=== PATIENT | male | born 1950 | race African-American/Black ===

== ENCOUNTER 2016-08-15 05:45 | Observation (INO) ==
--- NOTE | 2016-08-15 06:52 | Emergency Department Note ---
ICr Brittany, am scribing for, and in the presence of, Trinity Lyons DO 06:46. IEloy Debra, DO, personally performed the services described in this documentation, ascribed by Brooke Hankins in my presence, and it is both accurate and complete 652 . Arrival - Arrival Chief Complaint: Shortness of Breath Stated Complaint: sob ED Nursing Triage Note: C/C short of breath, upper abd pain started about midnight. Pt states he gets more short of breath on exertion and laying flat Mode of Arrival: Wheelchair Limitations: No Limitations Source: Patient, RN Notes Reviewed Time Seen by Provider: 08/15/16 06:33 - History of Present Illness HPI Narrative: Patient is a 65 y/o black male presenting to the ED with c/o shortness of breath with an onset of midnight. He reports that he had bouts of shortness of breath in the past and was seen for it, but was never told true cause. He denies any history of CHF, CAD, or [place]. Patient states he has had a cardiac catheterization recently, but no blockages were found. He denies any past hospitalizations for shortness of breath. He denies any recent long travels. Patient denies any associated symptoms of chest pain, abdominal pain, calf pain , nausea, vomiting, or diaphoresis. He reports a history of Atrial Fibrillation and has had a Defibrillator placed. He has no other complaint/pain. Allergies/Adverse Reactions: Allergies Allergy/AdvReac Type Severity Reaction Status Date / Time No Known Allergies Allergy Verified 08/15/16 05:57 Home Medications: Home Medications Medication Instructions Recorded Confirmed Type Aspirin EC Tab 325 mg PO DAILY 07/01/16 08/15/16 History Carvedilol 6.25 mg PO BID 07/01/16 08/15/16 History HYDROcodone/ACETAMIN 10-325 [[place] 1 tablet PO Q4H PRN 07/01/16 08/15/16 History 10-325] Isosorbide Mononitrate [Isosorbide 30 mg PO DAILY 07/01/16 08/15/16 History Mononitrate ER] Lisinopril 5 mg PO DAILY 07/01/16 08/15/16 History Nabumetone 1,000 mg PO PC SUPPER 07/01/16 08/15/16 History Omeprazole 20 mg PO DAILY 07/01/16 08/15/16 History Potassium Chloride 10 meq PO TID 07/01/16 08/15/16 History Simvastatin 40 mg PO DAILY 07/01/16 08/15/16 History Ascorbic Acid Tab [Vitamin C Tab] 1,000 mg PO BID #120 tablet 07/03/16 08/15/16 Rx Furosemide Tab [Lasix Tab] 80 mg PO DAILY #30 tablet 07/03/16 08/15/16 Rx Spironolactone [Aldactone] 50 mg PO DAILY #30 tablet 07/03/16 08/15/16 Rx Review of System - Review of System 12 point system: reviewed and no additional remarkable complaints except as stated - Review of System Constitutional: Absent: diaphoresis Head/Ears/Nose/Throat: Absent: nasal drainage, sore throat Respiratory: Present: respiratory distress. Absent: cough Cardiovascular: Absent: chest pain, edema Gastrointestinal: Absent: abdominal pain, nausea, vomiting Musculoskeletal: Absent: arm pain, back pain, leg pain, neck pain Medical,Surgical,& Family Hx - Medical History Cardio: History of: Cardiac Dysrhythmia, CHF, CAD, Hypertension, Cardiovascular Problems (ischemic cardiomyopathy) Endocrine: No history of: Diabetes Mellitus (IDDM), Diabetes Mellitus (NIDDM) - Surgical History Cardiac Surgeries: Sugical HX of: Internal Defibrillator Abdominal Surgeries: Surgical HX of: Colonoscopy, EGD - Family History Family History: Reports;: Family Cancer, Family Diabetes, Family Heart Disease, Family Hypertension - Social History Smoking Status: Never smoker Frequency of Alcohol Use: None Type of Drug Use: None Exam Vital Signs: Vital Signs Temperature 97 F L 08/15/16 05:52 Pulse Rate 88 08/15/16 05:52 Respiratory Rate 16 08/15/16 06:27 Blood Pressure 146/92 08/15/16 05:52 O2 Sat by Pulse Oximetry 96 08/15/16 05:52 - General General appearance: alert, in no apparent distress - Head Head exam: Present: atraumatic, normocephalic, normal inspection - Eye Eye exam: Present: normal appearance, PERRL, EOMI - ENT ENT exam: Present: normal exam, normal oropharynx, mucous membranes moist - Neck Neck exam: Present: normal inspection, full ROM, trachea midline - Chest Chest inspection: Present: normal inspection, symmetric chest wall rise - Respiratory Respiratory exam: Present: normal lung sounds bilaterally - Cardiovascular Cardiovascular exam: Present: regular rate, normal rhythm, normal heart sounds - Abdominal Exam Abdominal exam: Present: soft, normal bowel sounds - Extremities Exam Extremities exam: Present: normal inspection - Back Exam Back exam: Present: normal inspection - Neurological Exam Neurological exam: Present: alert, oriented X3, CN II-XII intact. Absent: motor sensory deficit - Psychiatric Psychiatric exam: Present: normal affect, normal mood - Skin Skin exam: Present: warm, dry, intact, normal color Course Course Narrative: spoke with Zion who will admit pt to hospitalist Results - Labs CBC & BMP: 08/15/16 06:25 08/15/16 06:25 Lab Results: I have reviewed the patients labs Labs: Laboratory Tests 08/15/16 08/15/16 06:25 06:25 WBC 4.6 RBC 5.28 Hgb 14.1 Hct 42.7 MCV 80.9 L Plt Count 177 MPV 13.0 H INR 1.0 PT Patient/Control Mix 11.1 D-Dimer, Quantitative 0.8 Circ Anticoag PTT 28.8 Laboratory Tests 08/15/16 06:25 Sodium 145 Potassium 4.3 Chloride 112 H Carbon Dioxide 25 BUN 17 Creatinine 1.20 Glucose 115 H Calcium 8.2 L AST 44 H Troponin I 0.551 H Globulin 3.8 H Albumin/Globulin Ratio 0.9 L - EKG EKG results: interpreted by YULISSA, no acute changes, not changed from: (june 2016) - Diagnostic Findings Procedure: Chest x-ray: image reviewed by me (chf) Disposition Clinical Impression: CHF (congestive heart failure), Cardiac enzymes elevated Case discussed with: patient Disposition: Still a Patient Condition: Stable Time of Disposition: 08:38
[2016-08-15 07:16] LABS: Basophils % 0.4 % (0.0-0.8); Eosinophils # 0.2 10*3/uL (0.0-0.87); Eosinophils % 5.2 % (0.00-10.9); Hematocrit 42.7 VOL% (42.0-52.0); Hemoglobin 14.1 GM/DL (14.0-18.0); Immature Granulocytes % 0.4 %; Immature Granulocytes Absolute 0.02 #; Lymphocytes # 1.4 10*3/uL (1.4-4.0); Lymphocytes % 30.7 % (21.2-54.2); Mean Corpuscular Hemoglobin 27 PG (27-34); Mean Corpuscular Volume 80.9 FL (87-102); Monocytes # 0.4 10*3/uL (0.11-0.8); Monocytes % 7.6 % (1.7-12.7); Neutrophils # 2.6 10*3/uL (1.4-7.4); Neutrophils % 55.7 % (38.7-73.9); Platelet Count 177 T/CUMM (130-400); Red Blood Count 5.28 MC/CUMM (3.8-5.5); Red Cell Distribution Width 16.8 % (9.3-17.3); White Blood Count 4.6 T/CUMM (4-12)
[2016-08-15 07:24] LABS: D-Dimer 0.8 MG/L FEU; PT Patient Result 11.1 SECS; Partial Thromboplastin Time 28.8 SECS (0-40)
[2016-08-15 07:29] LABS: Alanine Aminotransferase 34 U/L (16-61); Albumin 3.5 G/DL (3.4-5.0); Alkaline Phosphatase 103 U/L (45-117); Aspartate Amino Transferase 44 U/L (0-37); Blood Urea Nitrogen 17 MG/DL (7-18); Calcium 8.2 MG/DL (8.5-10.1); Glucose 115 MG/DL (74-106); Osmolality,Calculated 290.7 MOS/KG (273-304); Potassium 4.3 MMOL/L (3.5-5.1); Sodium 145 MMOL/L (136-145); Total Protein 7.3 G/DL (6.4-8.3)
[2016-08-15 07:30] LABS: Troponin I Only 0.551 NG/ML (0.00-0.045)
[2016-08-15] MEDS ORDERED: MORPHINE 2 MG/1 ML SYRINGE IV STA (08:30)
[2016-08-15] MEDS ORDERED: ONDANSETRON 4 MG/2 ML VIAL IV STA (08:30)
[2016-08-15] MEDS ORDERED: NITROGLYCERIN 2% OINT 1 INCH/GM PACK TOP STA (08:30)
[2016-08-15] MEDS ORDERED: NITROGLYCERIN 2% OINT 1 INCH/GM PACK TOP ONE (08:37)
[2016-08-15] MEDS ORDERED: ONDANSETRON 4 MG/2 ML VIAL ONE (08:37)
[2016-08-15] MEDS ORDERED: FUROSEMIDE 40 MG/4 ML VIAL IV STA (08:38)
[2016-08-15] MEDS ORDERED: ASPIRIN 325 MG TABLET PO STA (08:38)
[2016-08-15] MEDS ORDERED: MORPHINE 2 MG/1 ML SYRINGE ONE (08:38)
[2016-08-15] MEDS ORDERED: ASPIRIN 325 MG TABLET ONE (08:57)
[2016-08-15] MEDS ORDERED: FUROSEMIDE 40 MG/4 ML VIAL ONE (08:57)
--- NOTE | 2016-08-15 10:34 | Hospitalist History & Physical ---
Assessment and Plan - Time spent with patient Time spent with patient: Greater than 30 minutes (1) CHF (congestive heart failure) Status: Acute Assessment and plan: BNP 448. Last echocardiogram 07/01/16 revealed EF of 15-20% with several valvular abnormalities and a PAP of 73mmHg. He is followed by Dr. Uriostegui. Patient received 80mg of Lasix while in the ED and has been transferred to telemetry for further evaluation and treatment. Current Visit: Yes (2) Dyspnea Status: Resolved Assessment and plan: Likely secondary to CHF. Current Visit: No (3) Essential hypertension Status: Chronic Assessment and plan: Home meds include Lisinopril 5mg, Coreg 6.25mg bid, Spironolactone 25mg. BP on admission 153/107. Has NTG paste. Monitor and continue home meds. Current Visit: No (4) Elevated troponin Status: Resolved Assessment and plan: 0.551. This appears chronic, though better than on his last admission. Will continue to monitor. Current Visit: No History of Present Illness Chief complaint: SOB History of present illness: Mr. Fontanez is a 65 year old male with a past medical history significant for hypertension, ischemic cardiomyopathy with stent placement, CHF with ICD, hyperlipidemia who presents to the [facility] ED with complaints of SOB since midnight. The patient reports that he has been experiencing difficulty breathing when lying supine and was unable to sleep, prompting him to come to the emergency room. He denies any headache, blurry vision, chest pain, palpitations, near syncope, cough, pain with inspiration, numbness or tingling. On admission, the patient is short of breath without any labored breathing. He does report mid abdominal pain which is tender to palpation. Lab work is significant for trop 0.551, BNP 448. Coagulation studies were within normal limits. The patient is followed by Dr. Isela Uriostegui. Hospital records show no significant change in his EKG since June. He has an extensive cardiac history of CHF with is last echocardiogram on 07/01/16 revealed an EF of 15-20% with significant valvular abnormality and PAP of 73mmHg. He appears to have chronically elevated troponin, however there does not appear to be any obvious etiology for this acute SOB. The patient is a full code and will be admitted to the hospital medicine service for further evaluation and treatment. The case has been discussed with both Dr. Uriostegui and Dr. Page, the admitting physician. Home Medications Medication Instructions Recorded Confirmed Type Aspirin EC Tab 325 mg PO DAILY 07/01/16 08/15/16 History Carvedilol 6.25 mg PO BID 07/01/16 08/15/16 History HYDROcodone/ACETAMIN 10-325 [[place] 1 tablet PO Q4H PRN 07/01/16 08/15/16 History 10-325] Isosorbide Mononitrate [Isosorbide 30 mg PO DAILY 07/01/16 08/15/16 History Mononitrate ER] Lisinopril 5 mg PO DAILY 07/01/16 08/15/16 History Nabumetone 1,000 mg PO PC SUPPER 07/01/16 08/15/16 History Omeprazole 20 mg PO DAILY 07/01/16 08/15/16 History Potassium Chloride 10 meq PO TID 07/01/16 08/15/16 History Simvastatin 40 mg PO DAILY 07/01/16 08/15/16 History Ascorbic Acid Tab [Vitamin C Tab] 1,000 mg PO BID #120 tablet 07/03/16 08/15/16 Rx Furosemide Tab [Lasix Tab] 80 mg PO DAILY #30 tablet 07/03/16 08/15/16 Rx Spironolactone [Aldactone] 50 mg PO DAILY #30 tablet 07/03/16 08/15/16 Rx Allergies Allergy/AdvReac Type Severity Reaction Status Date / Time No Known Allergies Allergy Verified 08/15/16 05:57 Medical,Surgical,& Family Hx - Medical History Cardio: History of: Cardiac Dysrhythmia, CHF, CAD, Hypertension, Cardiovascular Problems (ischemic cardiomyopathy) Endocrine: No history of: Diabetes Mellitus (IDDM), Diabetes Mellitus (NIDDM) - Surgical History Cardiac Surgeries: Sugical HX of: Internal Defibrillator Abdominal Surgeries: Surgical HX of: Colonoscopy, EGD - Family History Family History: Reports;: Family Cancer, Family Diabetes, Family Heart Disease, Family Hypertension - Social History Smoking Status: Never smoker Frequency of Alcohol Use: None Type of Drug Use: None Marital Status: Single Lives With:: Alone Functional capacity: independent ambulation - Constitutional Constitutional: Absent: chills, fatigue, fever(s), frequent falls, weakness - EENT Eyes: Absent: blurry vision, loss of vision Ears: Absent: decreased hearing, ear pain Nose, mouth and throat: Absent: headache(s), neck mass, neck pain, sore throat - Cardiovascular Cardiovascular: Present: dyspnea, dyspnea on exertion. Absent: chest pain at rest, chest pain with activity, edema, lightheadedness, orthopnea, palpitations - Respiratory Respiratory: Absent: cough, dyspnea, hemoptysis, wheezing, pain on inspiration - Gastrointestinal Gastrointestinal: Present: abdominal pain. Absent: change in bowel habits, diarrhea, nausea, vomiting - Genitourinary Genitourinary: Absent: dysuria, flank pain - Musculoskeletal Musculoskeletal: Present: arthralgias, back pain - Neurological Neurological: Absent: abnormal gait, abnormal speech, confusion, dizziness, numbness, syncope - Endocrine Endocrine: Absent: cold intolerance, fatigue, heat intolerance - Hematologic/Lymphatic Hematologic/Lymphatic: Absent: easy bleeding, easy bruising Exam - Constitutional Vitals: Period Temp Pulse Resp BP Sys/Squires Pulse Ox Last 24 Hr 85-88 20-20 150-153/105-107 96-97 General appearance: normal weight, no acute distress - Head Head exam: Present: normal inspection, normocephalic, atraumatic - Eye Eye exam: Present: EOMI. Absent: conjunctival injection, nystagmus Pupils: Present: MARY - ENT ENT exam: Present: normal exam, normal external ear exam - Neck Neck exam: Present: normal inspection. Absent: lymphadenopathy, tenderness, thyromegaly - Respiratory Respiratory exam: Present: clear to auscultation bilaterally. Absent: rhonchi, wheezes - Cardiovascular Cardiovascular exam: Present: regular rate and rhythm. Absent: bradycardia, carotid bruit, tachycardia - GI/Abdominal GI/Abdominal exam: Present: normal bowel sounds, tenderness (mid abdomen). Absent: distended, firm, mass - Extremities Exam Extremities exam: Present: normal inspection, normal capillary refill. Absent: edema - Back Exam Back exam: Present: normal inspection. Absent: CVA tenderness (L), CVA tenderness (R) - Neurological Exam Neurological exam: Present: alert, oriented X3, CN II-XII intact, reflexes normal. Absent: motor sensory deficit - Psychiatric Psychiatric exam: Present: normal affect, normal mood - Skin Skin exam: Present: normal color, warm, dry. Absent: cyanosis Results - Labs CBC & BMP: 08/15/16 06:25 08/15/16 06:25 Lab Results: I have reviewed the past 24 hour labs - Diagnostic Findings Procedure: Chest x-ray: image reviewed by me
[2016-08-15] MEDS ORDERED: MAGNESIUM SULF RIDER 2 GM in PREMIX 1 EACH IV PRN (11:01)
[2016-08-15] MEDS ORDERED: MAGNESIUM SULF RIDER 4 GM in PREMIX 1 EACH IV PRN (11:01)
[2016-08-15] MEDS: CARVEDILOL 6.25 MG TABLET PO SCH ×2 (11:27→17:33)
[2016-08-15] MEDS: LISINOPRIL 5 MG TABLET PO SCH (11:27)
[2016-08-15] MEDS: ASCORBIC ACID 500 MG TABLET PO SCH ×2 (11:28→20:10)
--- NOTE | 2016-08-15 11:59 | XRay Report ---
Exam: XR chest 1V portable Indication: Cardiomegaly Shortness of breath Comparison study: 07/01/2016 Findings: Cardiomegaly is again noted, similar to prior. Left chest pacemaker-defibrillator device and wire leads appear in similar position. Patchy perihilar and basilar interstitial opacities appear similar to prior likely representing atelectasis/scarring. A degree of superimposed interstitial edema is not entirely excluded. No definite focal consolidation is visualized. There is no pneumothorax or pleural effusion. Osseous structures are stable. Impression: Cardiomegaly with probable central and basilar interstitial scarring and/or atelectasis. Mild underlying interstitial edema changes are not entirely excluded. PROCEDURE INTERPRETED AT [facility] DEPARTMENT OF RADIOLOGY Final Report Signed by: Kenn Branch
--- NOTE | 2016-08-15 14:56 | Cardiology Consult Note ---
Assessment and Plan (1) Dyspnea Status: Acute Assessment and plan: This is acute on chronic. It may be related to congestive heart failure, but his BNP and chest x-ray are only minimally elevated. He does not have an elevated d-dimer, has no other signs or symptoms of infection. If the symptoms do not improve with gentle diuresis we may need to consider pulmonary function testing. Current Visit: No (2) Cardiomyopathy Status: Chronic Current Visit: No (3) Essential hypertension Status: Chronic Current Visit: No (4) Congestive heart failure Status: Acute Assessment and plan: This is acute on chronic secondary to systolic dysfunction. As mentioned above his clinical presentation shows only very mild heart failure. Current Visit: No Qualifiers: Congestive heart failure type: systolic Congestive heart failure chronicity : acute on chronic Qualified Code(s): I50.23 - Acute on chronic systolic ( congestive) heart failure (5) Elevated troponin Status: Chronic Current Visit: No (6) Ischemic cardiomyopathy Status: Chronic Current Visit: No (7) History of placement of internal cardiac defibrillator Status: Chronic Current Visit: No (8) Hyperlipidemia Status: Chronic Current Visit: No History of Present Illness - Data of Consult Patient: known to practice within the last 3 years Consult date: 08/15/16 Requesting Physician: Lili Page - Consult Narrative Reason for consult: chf History of present illness: Credit Control Officer: Dr. Uriostegui who [facility]. He has coronary artery disease, ischemic cardiomyopathy Mr. Fontanez is a 65 year old male with ejection fraction 15-20%, hypertension, hyperlipidemia, defibrillator placement. He came to the emergency room with shortness of breath. He was doing well until the longwall shearer operator hours when he awoke feeling short of breath. He has not had any recent fevers, chills, cough. He denies recent dietary changes or indiscretions, denies medication noncompliance. It is unclear why his clinical status change. He did not have any antecedent exertional chest discomfort, lower extremity edema or orthopnea. He has received some Lasix and already his symptoms are improving. He has had no other clinical change in his usual status and has no other complaints today. CC: Lili Page MD - Home Medications and Allergies Home Medications: Home Medications Medication Instructions Recorded Confirmed Type Aspirin EC Tab 325 mg PO DAILY 07/01/16 08/15/16 History Carvedilol 6.25 mg PO BID 07/01/16 08/15/16 History HYDROcodone/ACETAMIN 10-325 [[place] 1 tablet PO Q4H PRN 07/01/16 08/15/16 History 10-325] Lisinopril 5 mg PO DAILY 07/01/16 08/15/16 History Nabumetone 1,000 mg PO PC SUPPER 07/01/16 08/15/16 History Omeprazole 20 mg PO DAILY 07/01/16 08/15/16 History Potassium Chloride 10 meq PO TID 07/01/16 08/15/16 History Simvastatin 40 mg PO DAILY 07/01/16 08/15/16 History Ascorbic Acid Tab [Vitamin C Tab] 1,000 mg PO BID #120 tablet 07/03/16 08/15/16 Rx Spironolactone [Aldactone] 25 mg PO DAILY 08/15/16 08/15/16 History Allergies/Adverse Reactions: Allergies Allergy/AdvReac Type Severity Reaction Status Date / Time No Known Allergies Allergy Verified 08/15/16 05:57 12 point system: reviewed and no additional remarkable complaints except as stated Medical,Surgical,& Family Hx - Medical History Cardio: History of: Cardiac Dysrhythmia, CHF, CAD, Hypertension, [place], Cardiovascular Problems (ischemic cardiomyopathy) Endocrine: No history of: Diabetes Mellitus (IDDM), Diabetes Mellitus (NIDDM) - Surgical History Cardiac Surgeries: Sugical HX of: Internal Defibrillator Patient Denies: Cardiac Catheterization Abdominal Surgeries: Surgical HX of: Colonoscopy, EGD - Family History Family History: Reports;: Family Cancer, Family Diabetes, Family Heart Disease, Family Hypertension - Social History Smoking Status: Never smoker Frequency of Alcohol Use: None Type of Drug Use: None Functional capacity: independent ambulation Physical Examination Vital Signs Temp Pulse Resp BP Pulse Ox 97 F L 84 20 146/92 96 08/15/16 05:52 08/15/16 05:52 08/15/16 05:52 08/15/16 05:52 08/15/16 05:52 Other: General appearance: normal weight, no acute distress - Head Head exam: Present: normal inspection, normocephalic, atraumatic. Absent: hematoma, laceration - Eye Eye exam: Present: EOMI. Absent: conjunctival injection, nystagmus, periorbital swelling, scleral icterus, laceration to eyelids Pupils: Present: PERRL. Absent: constricted, dilated, fixed, irregular, unequal - ENT ENT exam: Present: normal exam, normal external ear exam - Neck Neck exam: Present: normal inspection. Absent: lymphadenopathy, meningismus, tenderness, thyromegaly - Respiratory Respiratory exam: Present: clear to auscultation bilaterally. Absent: accessory muscle use, chest wall tenderness - Cardiovascular Cardiovascular exam: Present: regular rate and rhythm. Absent: carotid bruit, gallop, JVD, rubs - GI/Abdominal GI/Abdominal exam: Present: normal bowel sounds, soft. Absent: distended, firm , guarding, hernia, mass, tenderness, rebound. - Extremities Exam Extremities exam: Present: normal inspection, normal capillary refill. Absent: calf tenderness, edema - Back Exam Back exam: Present: normal inspection. Absent: muscle spasm, vertebral tenderness - Neurological Exam Neurological exam: Present: alert, oriented X3, grossly intact without resting or intention tremor - Psychiatric Psychiatric exam: Present: normal affect, normal mood - Skin Skin exam: Present: normal color, warm, dry, intact. Absent: cyanosis, diaphoretic, rash, urticaria Result/EKG - Labs CBC & BMP: 08/15/16 06:25 08/15/16 06:25 Lab Results: I have reviewed the past 24 hour labs Labs: Laboratory Results - last 24 hr 08/15/16 08/15/16 08/15/16 11:11 11:11 14:14 Magnesium 2.0 Troponin I 0.605 H 0.589 H - Diagnostic Findings Procedure: Chest x-ray: report reviewed by me
[2016-08-15] MEDS: FUROSEMIDE 40 MG/4 ML VIAL IV SCH (15:28)
[2016-08-15] MEDS: POTASSIUM CHLORIDE 10 MEQ TABLET PO SCH ×2 (15:28→20:10)
--- NOTE | 2016-08-15 15:28 | EKG Report ---
Stationary ECG Study [facility] ER Test Date: 08/15/2016 6:02:44 AM Pat Name: GERMANIA EMERY Department: Room: 284 Gender: M Councilman: Rodríguez : 1950 Requested by: Trinity Lyons Order Number: [id number] Reading MD: RHETT HINTON Intervals [place] Rate: 83 P: 62 NM: 194 QRS: -85 QRSD: 182 T: 88 QT: 449 QTc: 488 Interpretive Statements SINUS RHYTHM POSSIBLE LEFT ATRIAL ABNORMALITY RIGHT BUNDLE BRANCH BLOCK LEFT VENTRICULAR HYPERTROPHY LAFB INFERIOR INFARCT, ANTEROLATERAL INFARCT, PREVIOUSLY CITED Electronically Signed On 08-16-16 17:49:42 CDT by RHETT HINTON [email or web address]
[2016-08-15] MEDS ORDERED: NABUMETONE 500 MG TABLET PO SCH (18:00)
[2016-08-15] MEDS ORDERED: SIMVASTATIN 40 MG TABLET PO SCH (21:00)
[2016-08-16] MEDS ORDERED: SPIRONOLACTONE 50 MG TABLET PO SCH (09:00)
[2016-08-16] MEDS ORDERED: ASPIRIN EC 325 MG TABLET PO SCH (09:00)
[2016-08-16] MEDS ORDERED: PANTOPRAZOLE 40 MG TABLET PO SCH (09:00)
[2016-08-16] MEDS: FUROSEMIDE 40 MG/4 ML VIAL IV SCH (09:34)
[2016-08-16] MEDS: LISINOPRIL 5 MG TABLET PO SCH (09:35)
[2016-08-16] MEDS: ASCORBIC ACID 500 MG TABLET PO SCH (09:35)
[2016-08-16] MEDS: CARVEDILOL 6.25 MG TABLET PO SCH (09:35)
[2016-08-16] MEDS: POTASSIUM CHLORIDE 10 MEQ TABLET PO SCH (09:36)
--- NOTE | 2016-08-16 10:25 | Hospitalist Progress Note ---
Hospitalist: Subjective Interval history: Attestation to previously dictated history and physical performed on 08/15/2016. Due to problems with the electronic medical record I am unable to sign and test the history and physical performed by KIRBY Fuentes. The patient was seen and examined by me on the day of admission in room 284. He reported significant improvement of his symptoms after Lasix administration. His urine is very clear in color. He has no significant peripheral edema. His echocardiogram was reviewed and the case has been discussed with his welt wheeler who has graciously accepted him in transfer to her service. We will sign off the case but please feel free to call us if needed for any reason. The patient is admitted with acute on chronic systolic congestive heart failure with a depressed ejection fraction of approximately 15%. It does not appear that he was compliant with his Lasix therapy after his last discharge. His home medication list was reviewed and reconciled on admission. The patient is a full code. Please see the dictation from Dr. Uriostegui for further information and instructions regarding this patient's hospital course and care. Exam - Constitutional Vitals: Period Temp Pulse Resp BP Sys/Squires Pulse Ox Last 24 Hr 97.1 F-98.9 F 64-76 18-20 118-143/75-94 93-100 Results - Labs CBC & BMP: 08/15/16 06:25 08/15/16 06:25
[2016-08-16 12:31] VITALS: BP 118/78
--- NOTE | 2016-08-16 13:20 | Discharge Summary ---
Hospital Course - Hospital Course Hospital Course: Mr. Fontanez is a 65 year old male with ejection fraction 15-20%, hypertension, hyperlipidemia, defibrillator placement. He was admitted with shortness of breath and seemed to have mild congestive heart failure. There is some confusion as to whether or not he was really taking his Lasix. He denies any noncompliance, does not believe he has been out of his medications and initially tells me that he is taking his Lasix every day. However, this pill was not with the medications that he says he is taking every day. He was diuresed in the hospital and is feeling back to his baseline. He is being discharged home in stable condition. He would like to establish care with Dr. Jones as an outpatient. Diagnosis - Discharge Diagnosis (1) Dyspnea Status: Acute (2) Cardiomyopathy Status: Chronic (3) Essential hypertension Status: Chronic (4) Congestive heart failure Status: Acute (5) Elevated troponin Status: Chronic (6) Ischemic cardiomyopathy Status: Chronic (7) History of placement of internal cardiac defibrillator Status: Chronic (8) Hyperlipidemia Status: Chronic Discharge Plan - Discharge Data Disposition: Disch To Home/Self Care Condition at Discharge: Stable Discharge Diet: heart healthy Activity: resume usual activities as tolerated Hygiene: no restrictions - Discharge Medications New Furosemide Tab [Lasix Tab] 80 mg PO DAILY #30 tablet Continue Lisinopril 5 mg PO DAILY Nabumetone 1,000 mg PO PC SUPPER Potassium Chloride 10 meq PO TID Carvedilol 6.25 mg PO BID HYDROcodone/ACETAMIN 10-325 [Rhine 10-325] 1 tablet PO Q4H PRN PRN Reason: Pain Omeprazole 20 mg PO DAILY Simvastatin 40 mg PO DAILY Aspirin EC Tab 325 mg PO DAILY Ascorbic Acid Tab [Vitamin C Tab] 1,000 mg PO BID #120 tablet Spironolactone [Aldactone] 25 mg PO DAILY - Follow Up or Referral Follow Up: Isela Uriostegui MD [Physician] - 1 Month Dagmar Jones M.D. [Physician] - 2 Weeks (ESTABLISH CARE, NEXT AVAILABLE APPT. Hx of CAD, ICM, DM, HTN) - Forms/Instructions Additional Discharge Instructions: Weigh daily. If you gain >3 lbs in one day or 5 lbs in 1 week, take additional Lasix. BMP, BNP, Mg in 2 weeks with [facility]. Exam - Constitutional Vitals: Period Temp Pulse Resp BP Sys/Squires Pulse Ox Last 24 Hr 97.1 F-98.9 F 64-73 18-20 118-139/75-87 93-100 Exam: General appearance: normal weight, no acute distress - Head Head exam: Present: normal inspection, normocephalic, atraumatic. Absent: hematoma, laceration - Eye Eye exam: Present: EOMI. Absent: conjunctival injection, nystagmus, periorbital swelling, scleral icterus, laceration to eyelids Pupils: Present: PERRL. Absent: constricted, dilated, fixed, irregular, unequal - ENT ENT exam: Present: normal exam, normal external ear exam - Neck Neck exam: Present: normal inspection. Absent: lymphadenopathy, meningismus, tenderness, thyromegaly - Respiratory Respiratory exam: Present: clear to auscultation bilaterally. Absent: accessory muscle use, chest wall tenderness - Cardiovascular Cardiovascular exam: Present: regular rate and rhythm. Absent: carotid bruit, gallop, JVD, rubs - GI/Abdominal GI/Abdominal exam: Present: normal bowel sounds, soft. Absent: distended, firm , guarding, hernia, mass, tenderness, rebound. - Extremities Exam Extremities exam: Present: normal inspection, normal capillary refill. Absent: calf tenderness, edema - Back Exam Back exam: Present: normal inspection. Absent: muscle spasm, vertebral tenderness - Neurological Exam Neurological exam: Present: alert, oriented X3, grossly intact without resting or intention tremor - Psychiatric Psychiatric exam: Present: normal affect, normal mood - Skin Skin exam: Present: normal color, warm, dry, intact. Absent: cyanosis, diaphoretic, rash, urticaria Discharge Results Labs on day of discharge: Labs from last 24 hours 08/15/16 08/15/16 17:00 14:14 Troponin I 0.596 H 0.589 H DS: Provider Date of admission: 08/15/16 08:34 Primary care physician: . No PCP Attending physician on admission: Lili Page MD Consults: 08/15/16 11:01 Consult to Physician [CONS] Routine Comment: Mildly elevated troponin and BNP; pt known to you Consulting Provider: Isela Uriostegui 08/15/16 11:07 Consult to Pharmacy [CONS] Routine Reason for Pharmacy Consult: Adjust Meds Renal Funct Discharging clinician: Isela Uriostegui, Expected date of discharge: 08/16/16
== END 2016-08-16 17:00 | disposition home or self-care (01) ==
LOC: N.ED 05:45 → N.EDINP 05:45 → SUATTDRO 08:34 → N.TELEN 09:49
PROVIDERS: ADMIT Family Medicine; ATTEND Internal Medicine Cardiovascular Disease

== ENCOUNTER 2017-04-26 08:34 | Inpatient (IN) ==
[2017-04-26] MEDS ORDERED: FUROSEMIDE 100 MG/10 ML VIAL IV STA (09:41)
[2017-04-26] MEDS ORDERED: ONDANSETRON 4 MG/2 ML VIAL IV STA (09:41)
[2017-04-26] MEDS ORDERED: methylPREDNISolone SOD SUC 125 MG/2 ML VIAL IV STA (09:41)
[2017-04-26] MEDS ORDERED: ALBUTEROL 2.5 MG/3 ML NEB RESP TX SCH (10:00)
[2017-04-26] MEDS ORDERED: ONDANSETRON 4 MG/2 ML VIAL ONE (10:03)
[2017-04-26] MEDS ORDERED: FUROSEMIDE 100 MG/10 ML VIAL ONE (10:04)
[2017-04-26] MEDS ORDERED: methylPREDNISolone SOD SUC 125 MG/2 ML VIAL ONE (10:04)
[2017-04-26 10:15] LABS: Basophils % 0.4 % (0.0-0.8); Eosinophils # 0.1 10*3/uL (0.0-0.87); Eosinophils % 2.3 % (0.00-10.9); Hematocrit 41.5 VOL% (42.0-52.0); Hemoglobin 13.7 GM/DL (14.0-18.0); Immature Granulocytes % 0.7 %; Immature Granulocytes Absolute 0.04 #; Lymphocytes # 1.2 10*3/uL (1.4-4.0); Lymphocytes % 21.5 % (21.2-54.2); Mean Corpuscular Hemoglobin 27 PG (27-34); Mean Corpuscular Volume 81.9 FL (87-102); Monocytes # 0.4 10*3/uL (0.11-0.8); Monocytes % 6.8 % (1.7-12.7); Neutrophils # 3.9 10*3/uL (1.4-7.4); Neutrophils % 68.3 % (38.7-73.9); Platelet Count 161 T/CUMM (130-400); Red Blood Count 5.07 MC/CUMM (3.8-5.5); Red Cell Distribution Width 15.4 % (9.3-17.3); White Blood Count 5.7 T/CUMM (4-12)
[2017-04-26 10:16] LABS: Apearance,Urine CLEAR (Clear); Bilirubin,Urine Negative (Negative); Blood, Urine Negative (Negative); Glucose,Urine (UA) Negative (Negative); Ketones,Urine Negative (Negative); Mucus,Urine Occasional /LPF (Occasional); Nitrite,Urine Negative (Negative); Protein,Urine Negative; Squamous Epithelial Cell,Urine Occasional /HPF (0-10); Urine Color Yellow (Yellow); Urine Specific Gravity 1.011 (1.001-1.035); Urine Urobilinogen < 2.0 EU/DL (0.2-1.0); WBC,Urine 1 /HPF (0-6)
[2017-04-26 10:22] LABS: INR 1.1; PT Patient Result 11.4 SECS
[2017-04-26 10:38] LABS: Alanine Aminotransferase 13 U/L (16-61); Albumin 3.2 G/DL (3.4-5.0); Alkaline Phosphatase 80 U/L (45-117); Aspartate Amino Transferase 25 U/L (0-37); Blood Urea Nitrogen 18 MG/DL (7-18); Calcium 8.8 MG/DL (8.5-10.1); Glucose 163 MG/DL (74-106); Osmolality,Calculated 286.3 MOS/KG (273-304); Potassium 3.4 MMOL/L (3.5-5.1); Sodium 141 MMOL/L (136-145); Total Protein 7.4 G/DL (6.4-8.3)
[2017-04-26] MEDS ORDERED: DOCUSATE SODIUM 100 MG CAPSULE PO PRN (12:38)
[2017-04-26] MEDS ORDERED: MAGNESIUM SULF RIDER 2 GM in PREMIX 1 EACH IV PRN (12:38)
[2017-04-26] MEDS ORDERED: ACETAMINOPHEN 325 MG TABLET PO PRN (12:38)
[2017-04-26] MEDS ORDERED: LACTULOSE 20 GM/30 ML UDCUP PO PRN (12:38)
[2017-04-26] MEDS ORDERED: ZALEPLON 5 MG CAPSULE PO PRN (12:38)
[2017-04-26] MEDS ORDERED: MAGNESIUM SULF RIDER 4 GM in PREMIX 1 EACH IV PRN (12:38)
[2017-04-26] MEDS ORDERED: MORPHINE 10 MG/1 ML VIAL IV PRN (12:38)
[2017-04-26] MEDS ORDERED: POTASSIUM CHLORIDE 20 MEQ TABLET PO PRN (12:40)
[2017-04-26] MEDS ORDERED: LISINOPRIL 5 MG TABLET PO SCH (13:00)
[2017-04-26] MEDS ORDERED: LISINOPRIL 10 MG TABLET ONE (13:39)
[2017-04-26] MEDS ORDERED: POTASSIUM CHLORIDE 20 MEQ TABLET PO ONE (13:39)
[2017-04-26] MEDS ORDERED: ASPIRIN EC 325 MG TABLET PO ONE (13:39)
[2017-04-26] MEDS ORDERED: PANTOPRAZOLE 40 MG TABLET PO ONE (13:40)
[2017-04-26] MEDS ORDERED: CARVEDILOL 3.125 MG TABLET ONE (13:40)
[2017-04-26] MEDS: CARVEDILOL 6.25 MG TABLET PO SCH ×2 (13:44→21:31)
[2017-04-26] MEDS: ASPIRIN EC 325 MG TABLET PO SCH (13:44)
[2017-04-26] MEDS: POTASSIUM CHLORIDE 20 MEQ TABLET PO SCH ×2 (13:44→21:32)
[2017-04-26] MEDS: PANTOPRAZOLE 40 MG TABLET PO SCH (13:45)
[2017-04-26] MEDS ORDERED: ONDANSETRON 4 MG/2 ML VIAL IV PRN (14:15)
[2017-04-26] MEDS ORDERED: guaiFENesin/DM ER 600-30 MG TABLET PO PRN (14:15)
[2017-04-26] MEDS: ENOXAPARIN 100 MG/ML SYRINGE SUBCUT SCH (14:24)
[2017-04-26] MEDS ORDERED: ENOXAPARIN 100 MG/ML SYRINGE SUBCUT ONE (14:25)
[2017-04-26] MEDS: SPIRONOLACTONE 25 MG TABLET PO SCH (14:30)
[2017-04-26] MEDS: ASCORBIC ACID 500 MG TABLET PO SCH ×2 (14:30→21:31)
[2017-04-26] MEDS: ISOSORBIDE MONONITRATE 30 MG TABLET PO SCH (14:30)
[2017-04-26] MEDS ORDERED: LEVOFLOXACIN INJ 100 ML IV ONE (14:58)
[2017-04-26] MEDS: LEVOFLOXACIN INJ 500 MG in PREMIX 1 EACH IV SCH (15:06)
[2017-04-26] MEDS ORDERED: FUROSEMIDE 40 MG/4 ML VIAL IV SCH (16:00)
[2017-04-26 17:00] LABS: Calcium 8.5 MG/DL (8.5-10.1); Magnesium 1.8 MG/DL (1.8-2.4); Osmolality,Calculated 284.7 MOS/KG (273-304); Potassium 3.3 MMOL/L (3.5-5.1)
[2017-04-26] MEDS ORDERED: FUROSEMIDE 40 MG/4 ML VIAL ONE (17:53)
[2017-04-26] MEDS: LEVALBUTEROL 0.63 MG/3 ML NEB RESP TX SCH (19:53)
[2017-04-27] MEDS: LEVALBUTEROL 0.63 MG/3 ML NEB RESP TX SCH ×4 (01:53→20:33)
[2017-04-27] MEDS: ENOXAPARIN 100 MG/ML SYRINGE SUBCUT SCH ×2 (02:20→14:06)
[2017-04-27 04:25] LABS: Hematocrit 40.1 VOL% (42.0-52.0); Immature Granulocytes % 0.5 %; Immature Granulocytes Absolute 0.03 #; Lymphocytes # 0.8 10*3/uL (1.4-4.0); Lymphocytes % 12.6 % (21.2-54.2); Mean Corpuscular HGB Conc 32.4 GM/DL (32-36); Mean Corpuscular Hemoglobin 26 PG (27-34); Mean Platelet Volume 12.8 FL (9.6-12.0); Monocytes # 0.2 10*3/uL (0.11-0.8); Monocytes % 2.9 % (1.7-12.7); Neutrophils # 5.5 10*3/uL (1.4-7.4); Platelet Count 180 T/CUMM (130-400); Red Blood Count 4.95 MC/CUMM (3.8-5.5); Red Cell Distribution Width 15.2 % (9.3-17.3); White Blood Count 6.5 T/CUMM (4-12)
[2017-04-27 04:53] LABS: Calcium 8.3 MG/DL (8.5-10.1); Osmolality,Calculated 286.3 MOS/KG (273-304); Potassium 4.1 MMOL/L (3.5-5.1)
[2017-04-27 05:22] LABS: Bilirubin,Total 0.9 MG/DL (0.2-1.0); Calcium 8.7 MG/DL (8.5-10.1); Osmolality,Calculated 283.4 MOS/KG (273-304); Potassium 4.2 MMOL/L (3.5-5.1); Risk Ratio 4.12; Total Protein 7.1 G/DL (6.4-8.3); VLDL CHOLESTEROL 9.8 MG/DL
[2017-04-27 06:44] LABS: Apearance,Urine CLEAR (Clear); Bilirubin,Urine Negative (Negative); Blood, Urine Negative (Negative); Glucose,Urine (UA) Negative (Negative); Ketones,Urine Negative (Negative); Mucus,Urine Occasional /LPF (Occasional); Nitrite,Urine Negative (Negative); Protein,Urine 30 MG/DL; RBC,Urine 1 /HPF (0-4); Urine Color Yellow (Yellow); Urine Specific Gravity 1.027 (1.001-1.035); Urine Urobilinogen < 2.0 EU/DL (0.2-1.0); WBC,Urine <1 /HPF (0-6)
[2017-04-27] MEDS: SPIRONOLACTONE 25 MG TABLET PO SCH (09:24)
[2017-04-27] MEDS: POTASSIUM CHLORIDE 20 MEQ TABLET PO SCH ×2 (09:24→21:15)
[2017-04-27] MEDS: ASPIRIN EC 325 MG TABLET PO SCH (09:24)
[2017-04-27] MEDS: LISINOPRIL 5 MG TABLET PO SCH (09:25)
[2017-04-27] MEDS: CARVEDILOL 6.25 MG TABLET PO SCH ×2 (09:25→21:15)
[2017-04-27] MEDS: ISOSORBIDE MONONITRATE 30 MG TABLET PO SCH (09:25)
[2017-04-27] MEDS: PANTOPRAZOLE 40 MG TABLET PO SCH (09:25)
[2017-04-27] MEDS: ASCORBIC ACID 500 MG TABLET PO SCH ×2 (10:00→21:14)
[2017-04-27] MEDS: FUROSEMIDE 40 MG/4 ML VIAL IV SCH ×2 (10:17→15:20)
[2017-04-27] MEDS: LEVOFLOXACIN INJ 500 MG in PREMIX 1 EACH IV SCH (14:05)
[2017-04-27] MEDS ORDERED: ATORVASTATIN 20 MG TABLET PO SCH (21:00)
[2017-04-28] MEDS: LEVALBUTEROL 0.63 MG/3 ML NEB RESP TX SCH ×3 (01:32→13:01)
[2017-04-28] MEDS: ENOXAPARIN 100 MG/ML SYRINGE SUBCUT SCH (02:54)
[2017-04-28 05:38] LABS: Basophils % 0.2 % (0.0-0.8); Eosinophils # 0.1 10*3/uL (0.0-0.87); Eosinophils % 0.6 % (0.00-10.9); Hematocrit 41.8 VOL% (42.0-52.0); Hemoglobin 13.9 GM/DL (14.0-18.0); Immature Granulocytes % 0.3 %; Immature Granulocytes Absolute 0.03 #; Lymphocytes # 2.7 10*3/uL (1.4-4.0); Lymphocytes % 31.3 % (21.2-54.2); Mean Corpuscular HGB Conc 33.3 GM/DL (32-36); Mean Corpuscular Hemoglobin 27 PG (27-34); Mean Corpuscular Volume 80.1 FL (87-102); Mean Platelet Volume 12.2 FL (9.6-12.0); Monocytes # 0.5 10*3/uL (0.11-0.8); Monocytes % 5.7 % (1.7-12.7); Neutrophils # 5.4 10*3/uL (1.4-7.4); Neutrophils % 61.9 % (38.7-73.9); Platelet Count 195 T/CUMM (130-400); Red Blood Count 5.22 MC/CUMM (3.8-5.5); Red Cell Distribution Width 15.5 % (9.3-17.3); White Blood Count 8.7 T/CUMM (4-12)
[2017-04-28 06:25] LABS: Albumin 3.1 G/DL (3.4-5.0); Bilirubin,Total 2.2 MG/DL (0.2-1.0); Osmolality,Calculated 286.3 MOS/KG (273-304); Potassium 3.5 MMOL/L (3.5-5.1); Total Protein 7.2 G/DL (6.4-8.3)
[2017-04-28] MEDS: ASCORBIC ACID 500 MG TABLET PO SCH (09:34)
[2017-04-28] MEDS: PANTOPRAZOLE 40 MG TABLET PO SCH (09:34)
[2017-04-28] MEDS: ISOSORBIDE MONONITRATE 30 MG TABLET PO SCH (09:34)
[2017-04-28] MEDS: ASPIRIN EC 325 MG TABLET PO SCH (09:34)
[2017-04-28] MEDS: FUROSEMIDE 40 MG/4 ML VIAL IV SCH (09:35)
[2017-04-28] MEDS: LISINOPRIL 5 MG TABLET PO SCH (09:35)
[2017-04-28] MEDS: SPIRONOLACTONE 25 MG TABLET PO SCH (09:35)
[2017-04-28] MEDS: POTASSIUM CHLORIDE 20 MEQ TABLET PO SCH (09:35)
[2017-04-28] MEDS: CARVEDILOL 6.25 MG TABLET PO SCH (09:35)
[2017-04-28 11:34] VITALS: BP 93/61
== END 2017-04-28 13:48 | disposition home or self-care (01) | DRG 291 ==
LOC: N.ED 08:34 → N.EDINP 08:34 → N.TELEN 18:47
PROVIDERS: ADMIT Internal Medicine Cardiovascular Disease; ATTEND Internal Medicine Cardiovascular Disease

== ENCOUNTER 2017-12-25 10:58 | Inpatient (IN) ==
[2017-12-25] MEDS ORDERED: ONDANSETRON 4 MG/2 ML VIAL IV STA (11:25)
[2017-12-25] MEDS ORDERED: methylPREDNISolone SOD SUC 125 MG/2 ML VIAL IV STA (11:25)
[2017-12-25] MEDS ORDERED: AZITHROMYCIN INJ 500 MG in SODIUM CHLORIDE 0.9% 250 ML IV STA (11:25)
[2017-12-25] MEDS ORDERED: ALBUTEROL 2.5 MG/3 ML NEB RESP TX SCH (11:30)
[2017-12-25 11:58] LABS: Basophils % 0.2 % (0.0-0.8); Eosinophils % 0.2 % (0.00-10.9); Hematocrit 48.9 VOL% (42.0-52.0); Immature Granulocytes % 0.6 %; Immature Granulocytes Absolute 0.04 #; Lymphocytes # 0.8 10*3/uL (1.4-4.0); Lymphocytes % 12.2 % (21.2-54.2); Mean Corpuscular HGB Conc 32.7 GM/DL (32-36); Mean Corpuscular Hemoglobin 27 PG (27-34); Mean Corpuscular Volume 82.9 FL (87-102); Mean Platelet Volume 12.1 FL (9.6-12.0); Monocytes # 0.6 10*3/uL (0.11-0.8); Monocytes % 8.6 % (1.7-12.7); Neutrophils % 78.2 % (38.7-73.9); Platelet Count 175 T/CUMM (130-400); Red Cell Distribution Width 17.2 % (9.3-17.3); White Blood Count 6.4 T/CUMM (4-12)
[2017-12-25 12:03] LABS: INR 1.1; PT Patient Result 11.4 SECS; Partial Thromboplastin Time 31.7 SECS (0-40)
[2017-12-25] MEDS ORDERED: FUROSEMIDE 40 MG/4 ML VIAL IV STA (12:12)
[2017-12-25 12:14] LABS: Alanine Aminotransferase 24 U/L (16-61); Albumin 3.7 G/DL (3.4-5.0); Alkaline Phosphatase 122 U/L (45-117); Aspartate Amino Transferase 30 U/L (0-37); Blood Urea Nitrogen 20 MG/DL (7-18); Calcium 8.9 MG/DL (8.5-10.1); Glucose 133 MG/DL (74-106); Osmolality,Calculated 274.1 MOS/KG (273-304); Potassium 4.7 MMOL/L (3.5-5.1); Sodium 135 MMOL/L (136-145); Total Protein 9.1 G/DL (6.4-8.3)
[2017-12-25 12:20] LABS: Amorphous Crystals,Urine Occasional /HPF (Few); Apearance,Urine CLEAR (Clear); Bacteria,Urine Occasional /HPF (Few); Bilirubin,Urine Negative (Negative); Blood, Urine Small mg/dL (Negative); Glucose,Urine (UA) Negative (Negative); Hyaline Casts,Urine 1 /LPF (0-3); Ketones,Urine Negative (Negative); Mucus,Urine Occasional /LPF (Occasional); Nitrite,Urine Negative (Negative); Protein,Urine >=500 MG/DL; RBC,Urine 1 /HPF (0-4); Squamous Epithelial Cell,Urine Occasional /HPF (0-10); Urine Color Amber (Yellow); Urine Specific Gravity 1.024 (1.001-1.035); WBC,Urine <1 /HPF (0-6)
[2017-12-25] MEDS ORDERED: NITROGLYCERIN 2% OINT 1 INCH/GM PACK TOP STA (12:20)
[2017-12-25] MEDS ORDERED: ASPIRIN 325 MG TABLET PO STA (12:20)
[2017-12-25] MEDS ORDERED: ENOXAPARIN 100 MG/ML SYRINGE SUBCUT STA (12:25)
[2017-12-25 13:09] LABS: Band Neutrophils 4 % (0-10); Hypochromasia 1+; Lymphocytes 11 % (20-55); Platelet Estimate Adequate; Segmented Neutrophils 77 % (50-85); Total Cells Counted 100
[2017-12-25] MEDS: ISOSORBIDE MONONITRATE 30 MG TABLET PO SCH (16:14)
[2017-12-25] MEDS: hydrALAZINE 10 MG TABLET PO SCH ×2 (16:15→21:44)
[2017-12-25] MEDS ORDERED: ONDANSETRON 4 MG/2 ML VIAL IV PRN (16:27)
[2017-12-25] MEDS ORDERED: DOCUSATE SODIUM 100 MG CAPSULE PO PRN (16:27)
[2017-12-25] MEDS ORDERED: ACETAMINOPHEN 325 MG TABLET PO PRN (16:27)
[2017-12-25] MEDS ORDERED: BISACODYL 5 MG TABLET PO PRN (16:27)
[2017-12-25] MEDS ORDERED: MORPHINE 4 MG/1 ML VIAL IV PRN (16:27)
[2017-12-25] MEDS ORDERED: ALBUTEROL/IPRATROPIUM 3 ML NEB RESP TX PRN (16:27)
[2017-12-25] MEDS ORDERED: MAGNESIUM SULF RIDER 4 GM in PREMIX 1 EACH IV PRN (16:27)
[2017-12-25] MEDS ORDERED: MAGNESIUM SULF RIDER 2 GM in PREMIX 1 EACH IV PRN (16:27)
[2017-12-25 18:04] LABS: ABG Base Excess 0.6 MMOL/L (-2.5-2.5); ABG HCO3 24.9 MMOL/L (20-26); ABG Oxygen Saturation 97.1 % (95-100); ABG PCO2 31.3 MM HG (35-48); ABG PH 7.476 (7.35-7.45); ABG TCO2 19.3 MMOL/L (23-27)
[2017-12-25] MEDS: PIPERACILLIN/TAZOBACTAM 3,375 MG in SODIUM CHLORIDE 0.9% 100 ML IV SCH (19:36)
[2017-12-25] MEDS: FUROSEMIDE 40 MG/4 ML VIAL IV SCH (21:44)
[2017-12-25] MEDS: POTASSIUM CHLORIDE 20 MEQ TABLET PO SCH (21:44)
[2017-12-25] MEDS: CARVEDILOL 3.125 MG TABLET PO SCH (21:44)
[2017-12-25] MEDS: ATORVASTATIN 20 MG TABLET PO SCH (21:44)
[2017-12-25] MEDS ORDERED: VANCOMYCIN INJ 1,500 MG in SODIUM CHLORIDE 0.9% 500 ML IV SCH (22:00)
[2017-12-26] MEDS: PIPERACILLIN/TAZOBACTAM 3,375 MG in SODIUM CHLORIDE 0.9% 100 ML IV SCH ×3 (01:47→18:53)
[2017-12-26 04:55] LABS: Basophils % 0.2 % (0.0-0.8); Hematocrit 46.4 VOL% (42.0-52.0); Hemoglobin 15.5 GM/DL (14.0-18.0); Immature Granulocytes % 0.5 %; Immature Granulocytes Absolute 0.03 #; Lymphocytes # 1.1 10*3/uL (1.4-4.0); Lymphocytes % 16.3 % (21.2-54.2); Mean Corpuscular HGB Conc 33.4 GM/DL (32-36); Mean Corpuscular Hemoglobin 27 PG (27-34); Mean Corpuscular Volume 80.8 FL (87-102); Monocytes # 0.5 10*3/uL (0.11-0.8); Monocytes % 7.3 % (1.7-12.7); Neutrophils % 75.7 % (38.7-73.9); Platelet Count 177 T/CUMM (130-400); Red Blood Count 5.74 MC/CUMM (3.8-5.5); Red Cell Distribution Width 17.4 % (9.3-17.3); White Blood Count 6.6 T/CUMM (4-12)
[2017-12-26 05:29] LABS: Calcium 8.8 MG/DL (8.5-10.1); Osmolality,Calculated 272.5 MOS/KG (273-304); Potassium 5.2 MMOL/L (3.5-5.1); Risk Ratio 2.35; Thyroid Stimulating Hormone 1.89 uIU/ml (0.358-3.74); VLDL CHOLESTEROL 13.4 MG/DL
[2017-12-26 06:34] LABS: Band Neutrophils 6 % (0-10); Lymphocytes 18 % (20-55); Platelet Estimate Normal; Segmented Neutrophils 67 % (50-85); Total Cells Counted 100
[2017-12-26] MEDS: PANTOPRAZOLE 40 MG TABLET PO SCH (08:59)
[2017-12-26] MEDS: amLODIPine 5 MG TABLET PO SCH (08:59)
[2017-12-26] MEDS: FUROSEMIDE 40 MG/4 ML VIAL IV SCH ×2 (09:00→21:15)
[2017-12-26] MEDS: hydrALAZINE 10 MG TABLET PO SCH ×2 (09:00→16:33)
[2017-12-26] MEDS: ISOSORBIDE MONONITRATE 30 MG TABLET PO SCH (09:00)
[2017-12-26] MEDS: CARVEDILOL 3.125 MG TABLET PO SCH (09:00)
[2017-12-26] MEDS: ASPIRIN EC 325 MG TABLET PO SCH (09:00)
[2017-12-26] MEDS: POTASSIUM CHLORIDE 20 MEQ TABLET PO SCH ×2 (09:05→20:25)
[2017-12-26] MEDS: AZITHROMYCIN INJ 500 MG in SODIUM CHLORIDE 0.9% 250 ML IV SCH (15:09)
[2017-12-26] MEDS ORDERED: FUROSEMIDE 40 MG/4 ML VIAL IV ONE (16:04)
[2017-12-26] MEDS ORDERED: ALBUTEROL 2.5 MG/3 ML NEB RESP TX ONE (16:07)
[2017-12-26] MEDS: ENOXAPARIN 100 MG/ML SYRINGE SUBCUT SCH (16:46)
[2017-12-26 16:48] LABS: ABG Base Excess -4.6 MMOL/L (-2.5-2.5); ABG HCO3 20.6 MMOL/L (20-26); ABG Oxygen Saturation 94.4 % (95-100); ABG PH 7.518 (7.35-7.45); ABG TCO2 12.9 MMOL/L (23-27)
[2017-12-26 16:50] LABS: ABG PCO2 19.1 MM HG (35-48)
[2017-12-26 16:55] LABS: Troponin I 5.68 NG/ML (0.00-0.045)
[2017-12-26 17:47] LABS: ABG Base Excess -4.2 MMOL/L (-2.5-2.5); ABG HCO3 20.9 MMOL/L (20-26); ABG PCO2 27.7 MM HG (35-48); ABG PH 7.431 (7.35-7.45); ABG PO2 79.2 MM HG (80-95); ABG TCO2 15.5 MMOL/L (23-27)
[2017-12-26 19:53] LABS: Allen Test Positive
[2017-12-26 19:54] LABS: ABG Base Excess -2.4 MMOL/L (-2.5-2.5); ABG HCO3 22.3 MMOL/L (20-26); ABG Oxygen Saturation 94.2 % (95-100); ABG PCO2 27.1 MM HG (35-48); ABG PH 7.467 (7.35-7.45); ABG PO2 72.5 MM HG (80-95); ABG TCO2 16.5 MMOL/L (23-27)
[2017-12-26] MEDS: VANCOMYCIN INJ 1,500 MG in SODIUM CHLORIDE 0.9% 500 ML IV SCH (21:19)
[2017-12-26] MEDS: ATORVASTATIN 20 MG TABLET PO SCH (21:19)
[2017-12-26 22:13] LABS: ABG Base Excess -0.5 MMOL/L (-2.5-2.5); ABG Oxygen Saturation 96.3 % (95-100); ABG PCO2 31.3 MM HG (35-48); ABG PO2 86.1 MM HG (80-95); ABG TCO2 18.8 MMOL/L (23-27); Allen Test Positive
[2017-12-27] MEDS: PIPERACILLIN/TAZOBACTAM 3,375 MG in SODIUM CHLORIDE 0.9% 100 ML IV SCH ×3 (02:31→17:27)
[2017-12-27 04:07] LABS: Basophils % 0.2 % (0.0-0.8); Hematocrit 43.7 VOL% (42.0-52.0); Hemoglobin 14.9 GM/DL (14.0-18.0); Immature Granulocytes % 0.3 %; Immature Granulocytes Absolute 0.02 #; Lymphocytes # 1.5 10*3/uL (1.4-4.0); Lymphocytes % 24.7 % (21.2-54.2); Mean Corpuscular HGB Conc 34.1 GM/DL (32-36); Mean Corpuscular Hemoglobin 27 PG (27-34); Mean Corpuscular Volume 78.7 FL (87-102); Mean Platelet Volume 12.8 FL (9.6-12.0); Monocytes # 0.3 10*3/uL (0.11-0.8); Monocytes % 4.5 % (1.7-12.7); Neutrophils # 4.3 10*3/uL (1.4-7.4); Neutrophils % 70.3 % (38.7-73.9); Platelet Count 161 T/CUMM (130-400); Red Blood Count 5.55 MC/CUMM (3.8-5.5); Red Cell Distribution Width 15.9 % (9.3-17.3); White Blood Count 6.2 T/CUMM (4-12)
[2017-12-27 04:47] LABS: Calcium 8.4 MG/DL (8.5-10.1); Osmolality,Calculated 278.2 MOS/KG (273-304); Potassium 4.3 MMOL/L (3.5-5.1)
[2017-12-27 04:49] LABS: Hypochromasia 1+
[2017-12-27 04:50] LABS: Platelet Estimate Adequate
[2017-12-27] MEDS: ENOXAPARIN 100 MG/ML SYRINGE SUBCUT SCH ×2 (05:37→17:27)
[2017-12-27] MEDS: FUROSEMIDE 40 MG/4 ML VIAL IV SCH ×2 (09:09→21:25)
[2017-12-27] MEDS: amLODIPine 5 MG TABLET PO SCH (09:09)
[2017-12-27] MEDS: PANTOPRAZOLE 40 MG TABLET PO SCH (09:09)
[2017-12-27] MEDS: POTASSIUM CHLORIDE 20 MEQ TABLET PO SCH ×2 (09:09→21:26)
[2017-12-27] MEDS: ASPIRIN EC 325 MG TABLET PO SCH (09:09)
[2017-12-27] MEDS: AZITHROMYCIN INJ 500 MG in SODIUM CHLORIDE 0.9% 250 ML IV SCH (12:07)
[2017-12-27] MEDS ORDERED: LOPERAMIDE 2 MG CAPSULE PO PRN (13:04)
[2017-12-27] MEDS: CARVEDILOL 3.125 MG TABLET PO SCH (21:26)
[2017-12-27] MEDS: ATORVASTATIN 20 MG TABLET PO SCH (21:26)
[2017-12-27] MEDS: VANCOMYCIN INJ 1,500 MG in SODIUM CHLORIDE 0.9% 500 ML IV SCH (21:26)
[2017-12-28] MEDS: PIPERACILLIN/TAZOBACTAM 3,375 MG in SODIUM CHLORIDE 0.9% 100 ML IV SCH ×3 (02:51→18:05)
[2017-12-28] MEDS: ENOXAPARIN 100 MG/ML SYRINGE SUBCUT SCH ×2 (05:33→18:05)
[2017-12-28 05:54] LABS: Basophils # 0.1 10*3/uL (0.0-0.2); Basophils % 0.9 % (0.0-0.8); Eosinophils % 0.6 % (0.00-10.9); Hematocrit 45.8 VOL% (42.0-52.0); Hemoglobin 15.1 GM/DL (14.0-18.0); Immature Granulocytes % 0.9 %; Immature Granulocytes Absolute 0.06 #; Lymphocytes # 2.3 10*3/uL (1.4-4.0); Lymphocytes % 33.7 % (21.2-54.2); Mean Corpuscular Hemoglobin 27 PG (27-34); Mean Platelet Volume 13.3 FL (9.6-12.0); Monocytes # 0.7 10*3/uL (0.11-0.8); Neutrophils # 3.6 10*3/uL (1.4-7.4); Neutrophils % 52.9 % (38.7-73.9); Platelet Count 147 T/CUMM (130-400); Red Blood Count 5.52 MC/CUMM (3.8-5.5); Red Cell Distribution Width 16.6 % (9.3-17.3); White Blood Count 6.7 T/CUMM (4-12)
[2017-12-28 06:00] LABS: Calcium 8.6 MG/DL (8.5-10.1); Osmolality,Calculated 275.1 MOS/KG (273-304); Potassium 4.7 MMOL/L (3.5-5.1)
[2017-12-28 06:49] LABS: Hypochromasia 1+; Lymphocytes 36 % (20-55); Nucleated Red Blood Cells 1 (0-5); Platelet Estimate Normal; Segmented Neutrophils 49 % (50-85); Total Cells Counted 100
[2017-12-28] MEDS: VANCOMYCIN INJ 1,500 MG in SODIUM CHLORIDE 0.9% 500 ML IV SCH ×2 (08:43→22:34)
[2017-12-28] MEDS: CARVEDILOL 3.125 MG TABLET PO SCH ×2 (08:46→22:26)
[2017-12-28] MEDS: ASPIRIN EC 325 MG TABLET PO SCH (08:46)
[2017-12-28] MEDS: PANTOPRAZOLE 40 MG TABLET PO SCH (08:47)
[2017-12-28] MEDS: FUROSEMIDE 40 MG/4 ML VIAL IV SCH ×2 (08:48→22:28)
[2017-12-28] MEDS: POTASSIUM CHLORIDE 20 MEQ TABLET PO SCH ×2 (10:55→22:27)
[2017-12-28] MEDS: ALBUTEROL/IPRATROPIUM 3 ML NEB RESP TX SCH ×3 (11:00→19:45)
[2017-12-28] MEDS ORDERED: POTASSIUM CHLORIDE RIDER 10 MEQ in PREMIX 1 EACH IV PRN (15:12)
[2017-12-28] MEDS ORDERED: MAGNESIUM SULF RIDER 2 GM in PREMIX 1 EACH IV PRN (15:12)
[2017-12-28] MEDS ORDERED: POTASSIUM CHLORIDE RIDER 20 MEQ in PREMIX 1 EACH IV PRN (15:12)
[2017-12-28] MEDS: AZITHROMYCIN INJ 500 MG in SODIUM CHLORIDE 0.9% 250 ML IV SCH (15:18)
[2017-12-28] MEDS: ATORVASTATIN 20 MG TABLET PO SCH (22:26)
[2017-12-29] MEDS: ALBUTEROL/IPRATROPIUM 3 ML NEB RESP TX SCH ×7 (00:12→23:57)
[2017-12-29] MEDS: PIPERACILLIN/TAZOBACTAM 3,375 MG in SODIUM CHLORIDE 0.9% 100 ML IV SCH ×3 (03:10→20:04)
[2017-12-29 04:25] LABS: Basophils % 0.5 % (0.0-0.8); Eosinophils # 0.1 10*3/uL (0.0-0.87); Eosinophils % 1.1 % (0.00-10.9); Hemoglobin 14.9 GM/DL (14.0-18.0); Immature Granulocytes % 1.1 %; Immature Granulocytes Absolute 0.06 #; Lymphocytes % 36.8 % (21.2-54.2); Mean Corpuscular HGB Conc 33.1 GM/DL (32-36); Mean Corpuscular Hemoglobin 27 PG (27-34); Mean Corpuscular Volume 81.7 FL (87-102); Monocytes # 0.4 10*3/uL (0.11-0.8); Monocytes % 7.2 % (1.7-12.7); Neutrophils % 53.3 % (38.7-73.9); Platelet Count 127 T/CUMM (130-400); Red Blood Count 5.51 MC/CUMM (3.8-5.5); Red Cell Distribution Width 16.1 % (9.3-17.3); White Blood Count 5.6 T/CUMM (4-12)
[2017-12-29 04:46] LABS: Calcium 8.4 MG/DL (8.5-10.1); Osmolality,Calculated 274.1 MOS/KG (273-304); Potassium 4.6 MMOL/L (3.5-5.1)
[2017-12-29 05:07] LABS: Ovalocytes Few; Platelet Estimate Normal
[2017-12-29 05:08] LABS: Hypochromasia Slight
[2017-12-29] MEDS: ENOXAPARIN 100 MG/ML SYRINGE SUBCUT SCH (06:01)
[2017-12-29] MEDS ORDERED: HEPARIN/NACL 0.9% 2 UNITS/ML 1,000 ML IV ONE (06:50)
[2017-12-29] MEDS ORDERED: diphenhydrAMINE CAP 25 MG CAPSULE PO ONE (07:00)
[2017-12-29] MEDS ORDERED: LIDOCAINE 1% 20 ML VIAL ONE (07:45)
[2017-12-29] MEDS ORDERED: MIDAZOLAM 2 MG/2 ML VIAL ONE (07:46)
[2017-12-29] MEDS ORDERED: fentaNYL 100 MCG/2 ML VIAL ONE (07:46)
[2017-12-29] MEDS ORDERED: DIAZEPAM 5 MG TABLET PO ONE (08:00)
[2017-12-29] MEDS ORDERED: ACETAMINOPHEN/CODEINE 300-30 MG TABLET PO PRN (08:35)
[2017-12-29] MEDS: PANTOPRAZOLE 40 MG TABLET PO SCH (10:38)
[2017-12-29] MEDS: ASPIRIN EC 325 MG TABLET PO SCH (10:39)
[2017-12-29] MEDS: CARVEDILOL 3.125 MG TABLET PO SCH ×2 (10:39→21:28)
[2017-12-29] MEDS: POTASSIUM CHLORIDE 20 MEQ TABLET PO SCH ×2 (10:39→21:29)
[2017-12-29] MEDS: VANCOMYCIN INJ 1,500 MG in SODIUM CHLORIDE 0.9% 500 ML IV SCH ×2 (11:10→17:18)
[2017-12-29] MEDS: ATORVASTATIN 20 MG TABLET PO SCH (21:29)
[2017-12-30] MEDS: ENOXAPARIN 40 MG/0.4 ML SYRINGE SUBCUT SCH (02:02)
[2017-12-30] MEDS: PIPERACILLIN/TAZOBACTAM 3,375 MG in SODIUM CHLORIDE 0.9% 100 ML IV SCH ×3 (02:02→18:01)
[2017-12-30] MEDS: ALBUTEROL/IPRATROPIUM 3 ML NEB RESP TX SCH ×6 (03:49→23:31)
[2017-12-30 04:15] LABS: Basophils # 0.1 10*3/uL (0.0-0.2); Eosinophils # 0.1 10*3/uL (0.0-0.87); Eosinophils % 1.5 % (0.00-10.9); Hematocrit 42.2 VOL% (42.0-52.0); Hemoglobin 14.3 GM/DL (14.0-18.0); Immature Granulocytes % 1.2 %; Immature Granulocytes Absolute 0.07 #; Lymphocytes # 2.1 10*3/uL (1.4-4.0); Lymphocytes % 34.7 % (21.2-54.2); Mean Corpuscular HGB Conc 33.9 GM/DL (32-36); Mean Corpuscular Hemoglobin 27 PG (27-34); Mean Corpuscular Volume 79.5 FL (87-102); Mean Platelet Volume 13.1 FL (9.6-12.0); Monocytes # 0.5 10*3/uL (0.11-0.8); Monocytes % 8.1 % (1.7-12.7); NRBC # 0.03 10*3/uL; Neutrophils # 3.2 10*3/uL (1.4-7.4); Neutrophils % 53.5 % (38.7-73.9); Platelet Count 201 T/CUMM (130-400); Red Blood Count 5.31 MC/CUMM (3.8-5.5); Red Cell Distribution Width 15.9 % (9.3-17.3); White Blood Count 5.9 T/CUMM (4-12)
[2017-12-30 04:42] LABS: Calcium 8.6 MG/DL (8.5-10.1); Osmolality,Calculated 278.7 MOS/KG (273-304); Potassium 4.4 MMOL/L (3.5-5.1)
[2017-12-30 05:16] LABS: Anisocytosis 2+; Band Neutrophils 4 % (0-10); Eosinophils 1 % (0-10); Lymphocytes 33 % (20-55); Metamyelocytes 2 %; Microcytosis 2+; Myelocytes 1 %; Platelet Estimate Normal; Segmented Neutrophils 53 % (50-85); Total Cells Counted 100
[2017-12-30] MEDS: PANTOPRAZOLE 40 MG TABLET PO SCH (06:32)
[2017-12-30] MEDS: ASPIRIN EC 325 MG TABLET PO SCH (08:41)
[2017-12-30] MEDS: POTASSIUM CHLORIDE 20 MEQ TABLET PO SCH ×2 (08:42→20:51)
[2017-12-30] MEDS: CARVEDILOL 3.125 MG TABLET PO SCH ×2 (08:42→20:51)
[2017-12-30] MEDS: FUROSEMIDE 40 MG/4 ML VIAL IV SCH ×2 (10:06→20:51)
[2017-12-30] MEDS: VANCOMYCIN INJ 1,500 MG in SODIUM CHLORIDE 0.9% 500 ML IV SCH (10:08)
[2017-12-30] MEDS: ATORVASTATIN 20 MG TABLET PO SCH (20:51)
[2017-12-31] MEDS: PIPERACILLIN/TAZOBACTAM 3,375 MG in SODIUM CHLORIDE 0.9% 100 ML IV SCH ×2 (01:17→09:52)
[2017-12-31] MEDS: ENOXAPARIN 40 MG/0.4 ML SYRINGE SUBCUT SCH (02:04)
[2017-12-31] MEDS: ALBUTEROL/IPRATROPIUM 3 ML NEB RESP TX SCH ×3 (03:37→10:35)
[2017-12-31] MEDS: VANCOMYCIN INJ 1,500 MG in SODIUM CHLORIDE 0.9% 500 ML IV SCH (05:15)
[2017-12-31 05:34] LABS: Basophils # 0.1 10*3/uL (0.0-0.2); Basophils % 0.8 % (0.0-0.8); Eosinophils # 0.1 10*3/uL (0.0-0.87); Eosinophils % 1.8 % (0.00-10.9); Hematocrit 46.1 VOL% (42.0-52.0); Hemoglobin 15.1 GM/DL (14.0-18.0); Immature Granulocytes % 1.3 %; Immature Granulocytes Absolute 0.08 #; Lymphocytes # 1.8 10*3/uL (1.4-4.0); Lymphocytes % 28.9 % (21.2-54.2); Mean Corpuscular HGB Conc 32.8 GM/DL (32-36); Mean Corpuscular Hemoglobin 27 PG (27-34); Mean Corpuscular Volume 80.9 FL (87-102); Mean Platelet Volume 12.4 FL (9.6-12.0); Monocytes # 0.5 10*3/uL (0.11-0.8); Monocytes % 7.9 % (1.7-12.7); NRBC # 0.04 10*3/uL; Neutrophils # 3.6 10*3/uL (1.4-7.4); Neutrophils % 59.3 % (38.7-73.9); Platelet Count 169 T/CUMM (130-400); White Blood Count 6.1 T/CUMM (4-12)
[2017-12-31 05:47] LABS: Calcium 8.7 MG/DL (8.5-10.1); Osmolality,Calculated 279.5 MOS/KG (273-304); Potassium 5.1 MMOL/L (3.5-5.1)
[2017-12-31 05:51] LABS: Hypochromasia 1+; Lymphocytes 30 % (20-55); Platelet Estimate Adequate; Segmented Neutrophils 63 % (50-85)
[2017-12-31 05:52] LABS: Microcytosis Slight; Total Cells Counted 100
[2017-12-31] MEDS: PANTOPRAZOLE 40 MG TABLET PO SCH (08:11)
[2017-12-31] MEDS: CARVEDILOL 3.125 MG TABLET PO SCH (08:11)
[2017-12-31] MEDS: ASPIRIN EC 325 MG TABLET PO SCH (08:12)
[2017-12-31] MEDS: FUROSEMIDE 40 MG/4 ML VIAL IV SCH (08:12)
[2017-12-31] MEDS: POTASSIUM CHLORIDE 20 MEQ TABLET PO SCH (08:15)
[2017-12-31 11:40] VITALS: BP 121/79
== END 2017-12-31 13:53 | disposition home health service (06) | DRG 286 ==
LOC: N.ED 10:58 → N.EDINP 16:13 → SUATTDRO 16:13 → N.TELEN 16:42 → N.ICU 12-26 16:35 → N.TELEN 12-30 14:07
PROVIDERS: ADMIT Internal Medicine; ATTEND Hospitalist
PROC: CLCCHCL (ICD-10-PCS; 2017-12-29 08:15)

== ENCOUNTER 2018-01-04 13:14 | Inpatient (IN) ==
[2018-01-04 14:48] LABS: Basophils # 0.1 10*3/uL (0.0-0.2); Basophils % 0.8 % (0.0-0.8); Eosinophils # 0.1 10*3/uL (0.0-0.87); Eosinophils % 1.4 % (0.00-10.9); Hematocrit 43.7 VOL% (42.0-52.0); Hemoglobin 14.7 GM/DL (14.0-18.0); Immature Granulocytes % 1.6 %; Lymphocytes # 1.6 10*3/uL (1.4-4.0); Lymphocytes % 26.2 % (21.2-54.2); Mean Corpuscular HGB Conc 33.6 GM/DL (32-36); Mean Corpuscular Hemoglobin 28 PG (27-34); Mean Corpuscular Volume 82.1 FL (87-102); Mean Platelet Volume 11.4 FL (9.6-12.0); Monocytes # 0.6 10*3/uL (0.11-0.8); Monocytes % 8.9 % (1.7-12.7); NRBC # 0.02 10*3/uL; Neutrophils # 3.8 10*3/uL (1.4-7.4); Neutrophils % 61.1 % (38.7-73.9); Platelet Count 236 T/CUMM (130-400); Red Blood Count 5.32 MC/CUMM (3.8-5.5); Red Cell Distribution Width 17.4 % (9.3-17.3); White Blood Count 6.2 T/CUMM (4-12)
[2018-01-04 14:49] LABS: ABG Base Excess -1.4 MMOL/L (-2.5-2.5); ABG HCO3 23.3 MMOL/L (20-26); ABG PH 7.561 (7.35-7.45); ABG TCO2 15.7 MMOL/L (23-27); Allen Test Positive
[2018-01-04 14:53] LABS: ABG PCO2 20.6 MM HG (35-48)
[2018-01-04 14:56] LABS: INR 1.2; PT Patient Result 12.4 SECS; Partial Thromboplastin Time 29.1 SECS (0-40)
[2018-01-04 15:24] LABS: Eosinophils 2 % (0-10); Hypochromasia 1+; Lymphocytes 37 % (20-55); Nucleated Red Blood Cells 1 (0-5); Polychromasia Few; Segmented Neutrophils 57 % (50-85); Total Cells Counted 100
[2018-01-04 15:25] LABS: Anisocytosis Slight; Platelet Estimate Adequate
[2018-01-04 15:56] LABS: Albumin 3.3 G/DL (3.4-5.0); Bilirubin,Total 1.1 MG/DL (0.2-1.0); Calcium 9.2 MG/DL (8.5-10.1); Potassium 4.8 MMOL/L (3.5-5.1)
[2018-01-04] MEDS ORDERED: FUROSEMIDE 40 MG/4 ML VIAL IV STA (16:49)
[2018-01-04] MEDS ORDERED: ACETAMINOPHEN 325 MG TABLET PO PRN (17:30)
[2018-01-04] MEDS ORDERED: ALBUTEROL 2.5 MG/3 ML NEB RESP TX PRN (17:36)
[2018-01-04] MEDS: IPRATROPIUM 500 MCG/2.5 ML NEB RESP TX SCH (20:02)
[2018-01-04] MEDS: ATORVASTATIN 20 MG TABLET PO SCH (21:17)
[2018-01-04] MEDS: ENOXAPARIN 30 MG/0.3 ML SYRINGE SUBCUT SCH (21:17)
[2018-01-04] MEDS: levETIRAcetam 500 MG TABLET PO SCH (21:17)
[2018-01-04] MEDS: CARVEDILOL 3.125 MG TABLET PO SCH (21:17)
[2018-01-04] MEDS: BUDESONIDE/FORMOTEROL 160-4.5 INHALER 6 GM INH SCH (21:18)
[2018-01-04] MEDS: SODIUM CHLORIDE 0.9% 1,000 ML IV SCH (23:05)
[2018-01-05] MEDS: IPRATROPIUM 500 MCG/2.5 ML NEB RESP TX SCH ×2 (00:20→08:09)
[2018-01-05 06:48] LABS: Basophils % 0.7 % (0.0-0.8); Eosinophils # 0.1 10*3/uL (0.0-0.87); Eosinophils % 1.1 % (0.00-10.9); Hematocrit 40.1 VOL% (42.0-52.0); Hemoglobin 13.5 GM/DL (14.0-18.0); Immature Granulocytes % 1.2 %; Immature Granulocytes Absolute 0.07 #; Lymphocytes # 1.4 10*3/uL (1.4-4.0); Lymphocytes % 23.9 % (21.2-54.2); Mean Corpuscular HGB Conc 33.7 GM/DL (32-36); Mean Corpuscular Hemoglobin 28 PG (27-34); Mean Corpuscular Volume 83.4 FL (87-102); Monocytes # 0.7 10*3/uL (0.11-0.8); Monocytes % 13.1 % (1.7-12.7); NRBC # 0.03 10*3/uL; Neutrophils # 3.4 10*3/uL (1.4-7.4); Platelet Count 227 T/CUMM (130-400); Red Blood Count 4.81 MC/CUMM (3.8-5.5); Red Cell Distribution Width 17.2 % (9.3-17.3); White Blood Count 5.7 T/CUMM (4-12)
[2018-01-05 07:10] LABS: Band Neutrophils 1 % (0-10); Hypochromasia 1+; Lymphocytes 25 % (20-55); Microcytosis Slight; Nucleated Red Blood Cells 1 (0-5); Platelet Estimate Adequate; Segmented Neutrophils 63 % (50-85); Total Cells Counted 100
[2018-01-05 07:18] LABS: Bilirubin,Total 1.4 MG/DL (0.2-1.0); Potassium 4.5 MMOL/L (3.5-5.1)
[2018-01-05] MEDS: CARVEDILOL 3.125 MG TABLET PO SCH ×2 (09:29→20:23)
[2018-01-05] MEDS: CHOLECALCIFEROL 5,000 UNIT TABLET PO SCH (09:29)
[2018-01-05] MEDS: levETIRAcetam 500 MG TABLET PO SCH ×2 (09:30→20:23)
[2018-01-05] MEDS: PANTOPRAZOLE 40 MG TABLET PO SCH (09:30)
[2018-01-05] MEDS: ALLOPURINOL 100 MG TABLET PO SCH (09:30)
[2018-01-05] MEDS: ASPIRIN EC 325 MG TABLET PO SCH (09:30)
[2018-01-05] MEDS: BUDESONIDE/FORMOTEROL 160-4.5 INHALER 6 GM INH SCH ×2 (09:33→20:26)
[2018-01-05] MEDS: ALBUTEROL/IPRATROPIUM 3 ML NEB RESP TX SCH ×2 (12:43→19:37)
[2018-01-05] MEDS: methylPREDNISolone SOD SUC 40 MG/1 ML VIAL IV SCH ×2 (13:20→23:53)
[2018-01-05] MEDS: SODIUM CHLORIDE 0.9% 1,000 ML IV SCH (13:22)
[2018-01-05] MEDS: ENOXAPARIN 30 MG/0.3 ML SYRINGE SUBCUT SCH (20:23)
[2018-01-05] MEDS: ATORVASTATIN 20 MG TABLET PO SCH (20:23)
[2018-01-05] MEDS: MONTELUKAST 10 MG TABLET PO SCH (20:23)
[2018-01-06] MEDS: ALBUTEROL/IPRATROPIUM 3 ML NEB RESP TX SCH ×4 (00:14→19:02)
[2018-01-06] MEDS: SODIUM CHLORIDE 0.9% 1,000 ML IV SCH ×2 (01:08→14:25)
[2018-01-06] MEDS: CHOLECALCIFEROL 5,000 UNIT TABLET PO SCH (10:18)
[2018-01-06] MEDS: MONTELUKAST 10 MG TABLET PO SCH ×2 (10:18→20:33)
[2018-01-06] MEDS: levETIRAcetam 500 MG TABLET PO SCH ×2 (10:18→20:33)
[2018-01-06] MEDS: ALLOPURINOL 100 MG TABLET PO SCH (10:19)
[2018-01-06] MEDS: PANTOPRAZOLE 40 MG TABLET PO SCH (10:19)
[2018-01-06] MEDS: ASPIRIN EC 325 MG TABLET PO SCH (10:19)
[2018-01-06] MEDS: BUDESONIDE/FORMOTEROL 160-4.5 INHALER 6 GM INH SCH ×2 (10:20→20:35)
[2018-01-06] MEDS: CARVEDILOL 3.125 MG TABLET PO SCH ×2 (10:20→20:33)
[2018-01-06] MEDS: methylPREDNISolone SOD SUC 40 MG/1 ML VIAL IV SCH ×2 (13:35→23:59)
[2018-01-06] MEDS: ATORVASTATIN 20 MG TABLET PO SCH (20:33)
[2018-01-06] MEDS: ENOXAPARIN 30 MG/0.3 ML SYRINGE SUBCUT SCH (20:33)
[2018-01-07] MEDS: ALBUTEROL/IPRATROPIUM 3 ML NEB RESP TX SCH ×3 (00:24→13:50)
[2018-01-07 04:09] LABS: Basophils % 0.1 % (0.0-0.8); Hematocrit 40.8 VOL% (42.0-52.0); Hemoglobin 13.9 GM/DL (14.0-18.0); Immature Granulocytes % 0.7 %; Immature Granulocytes Absolute 0.05 #; Lymphocytes # 0.9 10*3/uL (1.4-4.0); Lymphocytes % 11.2 % (21.2-54.2); Mean Corpuscular HGB Conc 34.1 GM/DL (32-36); Mean Corpuscular Hemoglobin 28 PG (27-34); Mean Corpuscular Volume 80.8 FL (87-102); Mean Platelet Volume 11.5 FL (9.6-12.0); Monocytes # 0.2 10*3/uL (0.11-0.8); NRBC # 0.04 10*3/uL; Neutrophils # 6.5 10*3/uL (1.4-7.4); Platelet Count 225 T/CUMM (130-400); Red Blood Count 5.05 MC/CUMM (3.8-5.5); Red Cell Distribution Width 17.6 % (9.3-17.3); White Blood Count 7.6 T/CUMM (4-12)
[2018-01-07 04:39] LABS: Calcium 9.3 MG/DL (8.5-10.1); Osmolality,Calculated 282.2 MOS/KG (273-304); Potassium 4.8 MMOL/L (3.5-5.1)
[2018-01-07] MEDS: PANTOPRAZOLE 40 MG TABLET PO SCH (09:18)
[2018-01-07] MEDS: CARVEDILOL 3.125 MG TABLET PO SCH (09:18)
[2018-01-07] MEDS: CHOLECALCIFEROL 5,000 UNIT TABLET PO SCH (09:18)
[2018-01-07] MEDS: MONTELUKAST 10 MG TABLET PO SCH (09:18)
[2018-01-07] MEDS: ASPIRIN EC 325 MG TABLET PO SCH (09:18)
[2018-01-07] MEDS: levETIRAcetam 500 MG TABLET PO SCH (09:19)
[2018-01-07] MEDS: ALLOPURINOL 100 MG TABLET PO SCH (09:19)
[2018-01-07] MEDS: BUDESONIDE/FORMOTEROL 160-4.5 INHALER 6 GM INH SCH (09:20)
[2018-01-07] MEDS: methylPREDNISolone SOD SUC 40 MG/1 ML VIAL IV SCH (11:14)
[2018-01-07 11:23] VITALS: BP 110/85
[2018-01-07] MEDS ORDERED: FUROSEMIDE 40 MG TABLET PO SCH (12:00)
== END 2018-01-07 14:00 | disposition home health service (06) | DRG 683 ==
LOC: N.EDINP 13:14 → N.ED 13:14 → N.4E 19:06
PROVIDERS: ADMIT Internal Medicine; ATTEND Internal Medicine

== ENCOUNTER 2018-01-11 15:53 | Inpatient (IN) ==
[2018-01-11 17:30] LABS: Albumin 3.2 G/DL (3.4-5.0); Bilirubin,Total 2.4 MG/DL (0.2-1.0); Osmolality,Calculated 288.4 MOS/KG (273-304); Total Protein 7.9 G/DL (6.4-8.3)
[2018-01-11 17:34] LABS: Potassium 6.1 MMOL/L (3.5-5.1)
[2018-01-11 17:58] LABS: Basophils % 0.1 % (0.0-0.8); Eosinophils % 0.1 % (0.00-10.9); Hemoglobin 15.7 GM/DL (14.0-18.0); Immature Granulocytes % 0.8 %; Immature Granulocytes Absolute 0.08 #; Lymphocytes # 0.7 10*3/uL (1.4-4.0); Lymphocytes % 7.8 % (21.2-54.2); Mean Corpuscular HGB Conc 34.1 GM/DL (32-36); Mean Corpuscular Hemoglobin 27 PG (27-34); Mean Corpuscular Volume 79.9 FL (87-102); Mean Platelet Volume 12.4 FL (9.6-12.0); Monocytes # 0.5 10*3/uL (0.11-0.8); Monocytes % 5.6 % (1.7-12.7); NRBC # 1.18 10*3/uL; Neutrophils # 8.1 10*3/uL (1.4-7.4); Neutrophils % 85.6 % (38.7-73.9); Platelet Count 218 T/CUMM (130-400); Red Blood Count 5.76 MC/CUMM (3.8-5.5); Red Cell Distribution Width 18.7 % (9.3-17.3); White Blood Count 9.4 T/CUMM (4-12)
[2018-01-11 18:09] LABS: INR 1.5; PT Patient Result 15.8 SECS
[2018-01-11 19:57] LABS: Hypochromasia Slight; Ovalocytes 2+; Platelet Estimate Normal
[2018-01-11 19:58] LABS: Polychromasia Few; Target Cells Few
[2018-01-11] MEDS ORDERED: CALCIUM GLUCONATE 2,000 MG in SODIUM CHLORIDE 0.9% 100 ML IV ONE (20:04)
[2018-01-11] MEDS ORDERED: SODIUM BICARBONATE 50 MEQ/50 ML VIAL IV STA ×2 (20:04)
[2018-01-11] MEDS ORDERED: INSULIN REGULAR 100 UNIT/ML IV STA (20:09)
[2018-01-11] MEDS ORDERED: DEXTROSE 50% 25 GM/50 ML VIAL IV STA (20:10)
[2018-01-11] MEDS ORDERED: FUROSEMIDE 40 MG/4 ML VIAL IV STA (20:11)
[2018-01-11] MEDS ORDERED: SODIUM BICARBONATE 50 MEQ/50 ML SYRINGE IV ONE (20:34)
[2018-01-11] MEDS ORDERED: CALCIUM GLUCONATE 1,000 MG/10 ML VIAL IV ONE (20:34)
[2018-01-11] MEDS ORDERED: DEXTROSE 50% 25 GM/50 ML SYRINGE IV ONE (20:51)
[2018-01-11] MEDS ORDERED: ALBUTEROL 2.5 MG/3 ML NEB RESP TX PRN (21:56)
[2018-01-11] MEDS ORDERED: DEXTROSE 50% 25 GM/50 ML VIAL IV PRN (21:56)
[2018-01-11] MEDS ORDERED: ACETAMINOPHEN 325 MG TABLET PO PRN (21:56)
[2018-01-11] MEDS ORDERED: ONDANSETRON 4 MG/2 ML VIAL IV PRN (21:56)
[2018-01-11] MEDS ORDERED: GLUCAGON 1 MG VIAL IM PRN (21:56)
[2018-01-11] MEDS: SODIUM POLYSTYRENE SULFATE 15 GM/60 ML BOTTLE PO SCH (22:54)
[2018-01-11] MEDS: CARVEDILOL 3.125 MG TABLET PO SCH (22:55)
[2018-01-11] MEDS: ATORVASTATIN 20 MG TABLET PO SCH (22:55)
[2018-01-11] MEDS: levETIRAcetam 500 MG TABLET PO SCH (22:58)
[2018-01-12] MEDS: BUDESONIDE/FORMOTEROL 160-4.5 INHALER 6 GM INH SCH ×3 (00:26→21:17)
[2018-01-12] MEDS: MONTELUKAST 10 MG TABLET PO SCH ×3 (00:27→21:17)
[2018-01-12] MEDS: ALBUTEROL/IPRATROPIUM 3 ML NEB RESP TX SCH ×4 (01:23→19:41)
[2018-01-12 01:48] LABS: Hematocrit 43.4 VOL% (42.0-52.0); Hemoglobin 15.3 GM/DL (14.0-18.0); Immature Granulocytes % 0.7 %; Immature Granulocytes Absolute 0.05 #; Lymphocytes # 0.7 10*3/uL (1.4-4.0); Lymphocytes % 9.9 % (21.2-54.2); Mean Corpuscular HGB Conc 35.3 GM/DL (32-36); Mean Corpuscular Hemoglobin 28 PG (27-34); Mean Corpuscular Volume 78.6 FL (87-102); Mean Platelet Volume 12.1 FL (9.6-12.0); Monocytes # 0.5 10*3/uL (0.11-0.8); NRBC # 0.98 10*3/uL; Neutrophils # 6.2 10*3/uL (1.4-7.4); Neutrophils % 83.4 % (38.7-73.9); Platelet Count 192 T/CUMM (130-400); Red Blood Count 5.52 MC/CUMM (3.8-5.5); Red Cell Distribution Width 18.2 % (9.3-17.3); White Blood Count 7.5 T/CUMM (4-12)
[2018-01-12 02:05] LABS: Albumin 3.3 G/DL (3.4-5.0); Calcium 9.4 MG/DL (8.5-10.1); Osmolality,Calculated 299.5 MOS/KG (273-304); Potassium 4.6 MMOL/L (3.5-5.1); Total Protein 7.6 G/DL (6.4-8.3)
[2018-01-12 02:45] LABS: Anisocytosis 2+; Band Neutrophils 4 % (0-10); Lymphocytes 12 % (20-55); Macrocytosis 1+; Microcytosis 1+; Nucleated Red Blood Cells 24 (0-5); Platelet Estimate Normal; Polychromasia Few; Segmented Neutrophils 76 % (50-85); Total Cells Counted 100
[2018-01-12] MEDS: SODIUM POLYSTYRENE SULFATE 15 GM/60 ML BOTTLE PO SCH ×3 (03:54→17:32)
[2018-01-12] MEDS ORDERED: INSULIN LISPRO 100 UNIT/ML SUBCUT SCH (07:30)
[2018-01-12] MEDS: levETIRAcetam 500 MG TABLET PO SCH ×2 (10:34→21:18)
[2018-01-12] MEDS: PANTOPRAZOLE 40 MG TABLET PO SCH (10:34)
[2018-01-12] MEDS: CHOLECALCIFEROL 5,000 UNIT TABLET PO SCH (10:35)
[2018-01-12] MEDS: ASPIRIN EC 325 MG TABLET PO SCH (10:35)
[2018-01-12] MEDS: FUROSEMIDE 40 MG/4 ML VIAL IV SCH ×2 (10:35→17:48)
[2018-01-12] MEDS: predniSONE 20 MG TABLET PO SCH (10:35)
[2018-01-12] MEDS: ALLOPURINOL 100 MG TABLET PO SCH (10:35)
[2018-01-12] MEDS: CARVEDILOL 3.125 MG TABLET PO SCH ×2 (10:35→19:20)
[2018-01-12] MEDS ORDERED: ceFAZolin 1,000 MG VIAL IRRIG ONE (10:41)
[2018-01-12] MEDS ORDERED: ceFAZolin 1,000 MG in SYRINGE 1 EACH IV ONE (10:41)
[2018-01-12] MEDS: ATORVASTATIN 20 MG TABLET PO SCH (21:18)
[2018-01-13] MEDS: ALBUTEROL/IPRATROPIUM 3 ML NEB RESP TX SCH ×4 (00:38→19:38)
[2018-01-13 04:54] LABS: Basophils % 0.1 % (0.0-0.8); Eosinophils % 0.2 % (0.00-10.9); Hematocrit 42.9 VOL% (42.0-52.0); Hemoglobin 14.4 GM/DL (14.0-18.0); Immature Granulocytes % 0.7 %; Immature Granulocytes Absolute 0.06 #; Lymphocytes % 10.7 % (21.2-54.2); Mean Corpuscular HGB Conc 33.6 GM/DL (32-36); Mean Corpuscular Hemoglobin 27 PG (27-34); Mean Corpuscular Volume 81.7 FL (87-102); Mean Platelet Volume 12.6 FL (9.6-12.0); Monocytes # 0.7 10*3/uL (0.11-0.8); Monocytes % 8.1 % (1.7-12.7); NRBC # 0.78 10*3/uL; Neutrophils # 7.3 10*3/uL (1.4-7.4); Neutrophils % 80.2 % (38.7-73.9); Platelet Count 176 T/CUMM (130-400); Red Blood Count 5.25 MC/CUMM (3.8-5.5); Red Cell Distribution Width 18.6 % (9.3-17.3); White Blood Count 9.1 T/CUMM (4-12)
[2018-01-13 05:18] LABS: Calcium 8.8 MG/DL (8.5-10.1)
[2018-01-13] MEDS ORDERED: PROPOFOL 200 MG/20 ML VIAL IV ONE (09:23)
[2018-01-13] MEDS ORDERED: methylPREDNISolone SOD SUC 125 MG/2 ML VIAL ONE (09:24)
[2018-01-13] MEDS ORDERED: ETOMIDATE 40 MG/20 ML VIAL IV ONE (09:24)
[2018-01-13] MEDS ORDERED: MIDAZOLAM 2 MG/2 ML VIAL ONE ×2 (09:24→14:30)
[2018-01-13] MEDS ORDERED: ceFAZolin 1,000 MG VIAL IRRIG ONE (10:30)
[2018-01-13] MEDS ORDERED: ceFAZolin 1,000 MG in SYRINGE 1 EACH IV ONE (10:30)
[2018-01-13] MEDS ORDERED: HEPARIN/NACL 0.9% 2 UNITS/ML 500 ML IV ONE (11:43)
[2018-01-13] MEDS ORDERED: ceFAZolin 1,000 MG VIAL ONE (11:43)
[2018-01-13] MEDS ORDERED: LIDOCAINE 1% 20 ML VIAL ONE (11:43)
[2018-01-13] MEDS ORDERED: TISSUE ADHESIVE 1 EACH APPLICATOR TOP ONE (13:33)
[2018-01-13] MEDS ORDERED: KETAMINE 500 MG/10 ML VIAL ONE (14:53)
[2018-01-13] MEDS: ASPIRIN EC 325 MG TABLET PO SCH (16:48)
[2018-01-13] MEDS: CHOLECALCIFEROL 5,000 UNIT TABLET PO SCH (16:48)
[2018-01-13] MEDS: ALLOPURINOL 100 MG TABLET PO SCH (16:49)
[2018-01-13] MEDS: FUROSEMIDE 40 MG/4 ML VIAL IV SCH ×2 (17:03→17:07)
[2018-01-13] MEDS: CARVEDILOL 3.125 MG TABLET PO SCH ×2 (17:07→18:01)
[2018-01-13] MEDS: PANTOPRAZOLE 40 MG TABLET PO SCH (17:07)
[2018-01-13] MEDS: predniSONE 20 MG TABLET PO SCH (17:08)
[2018-01-13] MEDS: levETIRAcetam 500 MG TABLET PO SCH ×2 (17:08→21:46)
[2018-01-13] MEDS: BUDESONIDE/FORMOTEROL 160-4.5 INHALER 6 GM INH SCH ×2 (17:09→21:46)
[2018-01-13] MEDS: MONTELUKAST 10 MG TABLET PO SCH ×2 (17:09→21:46)
[2018-01-13] MEDS: ATORVASTATIN 20 MG TABLET PO SCH (21:46)
[2018-01-13] MEDS: ceFAZolin 1,000 MG in SYRINGE 1 EACH IV SCH (22:25)
[2018-01-14] MEDS: ALBUTEROL/IPRATROPIUM 3 ML NEB RESP TX SCH ×4 (01:32→19:47)
[2018-01-14 04:23] LABS: Eosinophils % 0.1 % (0.00-10.9); Hematocrit 44.5 VOL% (42.0-52.0); Hemoglobin 14.8 GM/DL (14.0-18.0); Immature Granulocytes % 0.4 %; Immature Granulocytes Absolute 0.03 #; Lymphocytes # 0.6 10*3/uL (1.4-4.0); Lymphocytes % 7.8 % (21.2-54.2); Mean Corpuscular HGB Conc 33.3 GM/DL (32-36); Mean Corpuscular Hemoglobin 28 PG (27-34); Mean Corpuscular Volume 83.5 FL (87-102); Mean Platelet Volume 12.7 FL (9.6-12.0); Monocytes # 0.3 10*3/uL (0.11-0.8); Monocytes % 3.7 % (1.7-12.7); NRBC # 0.28 10*3/uL; Neutrophils # 6.6 10*3/uL (1.4-7.4); Platelet Count 156 T/CUMM (130-400); Red Blood Count 5.33 MC/CUMM (3.8-5.5); Red Cell Distribution Width 18.8 % (9.3-17.3); White Blood Count 7.5 T/CUMM (4-12)
[2018-01-14] MEDS: ceFAZolin 1,000 MG in SYRINGE 1 EACH IV SCH (04:40)
[2018-01-14 04:49] LABS: Calcium 8.6 MG/DL (8.5-10.1); Osmolality,Calculated 287.1 MOS/KG (273-304); Potassium 4.2 MMOL/L (3.5-5.1)
[2018-01-14] MEDS: ASPIRIN EC 325 MG TABLET PO SCH (09:10)
[2018-01-14] MEDS: levETIRAcetam 500 MG TABLET PO SCH ×2 (09:10→20:33)
[2018-01-14] MEDS: FUROSEMIDE 40 MG/4 ML VIAL IV SCH ×2 (09:10→16:26)
[2018-01-14] MEDS: CHOLECALCIFEROL 5,000 UNIT TABLET PO SCH (09:10)
[2018-01-14] MEDS: MONTELUKAST 10 MG TABLET PO SCH ×2 (09:10→20:33)
[2018-01-14] MEDS: predniSONE 20 MG TABLET PO SCH (09:10)
[2018-01-14] MEDS: PANTOPRAZOLE 40 MG TABLET PO SCH (09:10)
[2018-01-14] MEDS: ALLOPURINOL 100 MG TABLET PO SCH (09:10)
[2018-01-14] MEDS: CARVEDILOL 3.125 MG TABLET PO SCH ×2 (09:11→16:26)
[2018-01-14] MEDS: BUDESONIDE/FORMOTEROL 160-4.5 INHALER 6 GM INH SCH ×2 (09:20→20:34)
[2018-01-14] MEDS: cephALEXin 250 MG CAPSULE PO SCH ×2 (09:59→20:32)
[2018-01-14] MEDS: ATORVASTATIN 20 MG TABLET PO SCH (20:33)
[2018-01-15] MEDS: ALBUTEROL/IPRATROPIUM 3 ML NEB RESP TX SCH ×4 (01:14→20:49)
[2018-01-15 05:09] LABS: Hematocrit 42.8 VOL% (42.0-52.0); Hemoglobin 14.4 GM/DL (14.0-18.0); Immature Granulocytes % 0.7 %; Immature Granulocytes Absolute 0.06 #; Lymphocytes # 0.7 10*3/uL (1.4-4.0); Lymphocytes % 7.2 % (21.2-54.2); Mean Corpuscular HGB Conc 33.6 GM/DL (32-36); Mean Corpuscular Hemoglobin 28 PG (27-34); Mean Platelet Volume 12.5 FL (9.6-12.0); Monocytes # 0.7 10*3/uL (0.11-0.8); Monocytes % 7.6 % (1.7-12.7); NRBC # 0.16 10*3/uL; Neutrophils # 7.8 10*3/uL (1.4-7.4); Neutrophils % 84.5 % (38.7-73.9); Platelet Count 144 T/CUMM (130-400); Red Blood Count 5.22 MC/CUMM (3.8-5.5); Red Cell Distribution Width 18.4 % (9.3-17.3); White Blood Count 9.2 T/CUMM (4-12)
[2018-01-15 05:38] LABS: Calcium 8.6 MG/DL (8.5-10.1); Osmolality,Calculated 282.2 MOS/KG (273-304); Potassium 3.8 MMOL/L (3.5-5.1)
[2018-01-15] MEDS: CARVEDILOL 3.125 MG TABLET PO SCH (08:32)
[2018-01-15] MEDS: cephALEXin 250 MG CAPSULE PO SCH ×2 (08:32→20:07)
[2018-01-15] MEDS: CHOLECALCIFEROL 5,000 UNIT TABLET PO SCH (08:32)
[2018-01-15] MEDS: PANTOPRAZOLE 40 MG TABLET PO SCH (08:33)
[2018-01-15] MEDS: ASPIRIN EC 325 MG TABLET PO SCH (08:33)
[2018-01-15] MEDS: FUROSEMIDE 80 MG TABLET PO SCH ×2 (08:33→16:09)
[2018-01-15] MEDS: MONTELUKAST 10 MG TABLET PO SCH ×2 (08:33→20:07)
[2018-01-15] MEDS: levETIRAcetam 500 MG TABLET PO SCH ×2 (08:33→20:07)
[2018-01-15] MEDS: ALLOPURINOL 100 MG TABLET PO SCH (08:33)
[2018-01-15] MEDS: BUDESONIDE/FORMOTEROL 160-4.5 INHALER 6 GM INH SCH ×2 (08:37→20:08)
[2018-01-15] MEDS: CARVEDILOL 6.25 MG TABLET PO SCH (16:09)
[2018-01-15] MEDS: ATORVASTATIN 20 MG TABLET PO SCH (20:08)
[2018-01-16] MEDS: ALBUTEROL/IPRATROPIUM 3 ML NEB RESP TX SCH ×3 (01:00→12:50)
[2018-01-16 06:15] LABS: Eosinophils # 0.1 10*3/uL (0.0-0.87); Hematocrit 46.4 VOL% (42.0-52.0); Hemoglobin 15.8 GM/DL (14.0-18.0); Immature Granulocytes % 0.4 %; Immature Granulocytes Absolute 0.04 #; Lymphocytes % 9.9 % (21.2-54.2); Mean Corpuscular HGB Conc 34.1 GM/DL (32-36); Mean Corpuscular Hemoglobin 28 PG (27-34); Mean Corpuscular Volume 81.8 FL (87-102); Mean Platelet Volume 12.9 FL (9.6-12.0); Monocytes # 0.6 10*3/uL (0.11-0.8); Monocytes % 6.4 % (1.7-12.7); NRBC # 0.06 10*3/uL; Neutrophils % 82.3 % (38.7-73.9); Platelet Count 130 T/CUMM (130-400); Red Blood Count 5.67 MC/CUMM (3.8-5.5); White Blood Count 9.8 T/CUMM (4-12)
[2018-01-16 06:38] LABS: Calcium 8.6 MG/DL (8.5-10.1); Osmolality,Calculated 277.2 MOS/KG (273-304); Potassium 4.3 MMOL/L (3.5-5.1)
[2018-01-16] MEDS: cephALEXin 250 MG CAPSULE PO SCH (08:59)
[2018-01-16] MEDS: BUDESONIDE/FORMOTEROL 160-4.5 INHALER 6 GM INH SCH (08:59)
[2018-01-16] MEDS: ALLOPURINOL 100 MG TABLET PO SCH (08:59)
[2018-01-16] MEDS: levETIRAcetam 500 MG TABLET PO SCH (08:59)
[2018-01-16] MEDS: PANTOPRAZOLE 40 MG TABLET PO SCH (09:00)
[2018-01-16] MEDS: MONTELUKAST 10 MG TABLET PO SCH (09:00)
[2018-01-16] MEDS: FUROSEMIDE 80 MG TABLET PO SCH (09:00)
[2018-01-16] MEDS: CARVEDILOL 6.25 MG TABLET PO SCH (09:00)
[2018-01-16] MEDS: ASPIRIN EC 325 MG TABLET PO SCH (09:00)
[2018-01-16] MEDS: CHOLECALCIFEROL 5,000 UNIT TABLET PO SCH (09:00)
[2018-01-16 12:36] VITALS: BP 103/81
== END 2018-01-16 13:08 | DRG 981 ==
LOC: N.ED 15:53 → N.EDINP 21:16 → N.TELEN 21:56
PROVIDERS: ADMIT Internal Medicine; ATTEND Internal Medicine

== ENCOUNTER 2018-01-19 19:40 | Inpatient (IN) ==
[2018-01-19] MEDS ORDERED: ONDANSETRON 4 MG/2 ML VIAL IV STA (20:19)
[2018-01-19] MEDS ORDERED: PANTOPRAZOLE 40 MG VIAL IV STA (20:19)
[2018-01-19 22:26] LABS: Apearance,Urine Slightly Hazy (Clear); Bilirubin,Urine Negative (Negative); Blood, Urine Small mg/dL (Negative); Glucose,Urine (UA) Negative (Negative); Hyaline Casts,Urine 41 /LPF (0-3); Ketones,Urine Negative (Negative); Mucus,Urine Occasional /LPF (Occasional); Nitrite,Urine Negative (Negative); Protein,Urine 100 MG/DL; RBC,Urine 3 /HPF (0-4); Squamous Epithelial Cell,Urine Occasional /HPF (0-10); Urine Specific Gravity 1.018 (1.001-1.035); WBC,Urine 3 /HPF (0-6)
[2018-01-19 22:27] LABS: Urine Color Dark yellow (Yellow)
[2018-01-19 23:32] LABS: Basophils % 0.1 % (0.0-0.8); Eosinophils # 0.1 10*3/uL (0.0-0.87); Eosinophils % 1.5 % (0.00-10.9); Hematocrit 48.6 VOL% (42.0-52.0); Hemoglobin 16.2 GM/DL (14.0-18.0); Immature Granulocytes % 0.7 %; Immature Granulocytes Absolute 0.06 #; Lymphocytes # 1.3 10*3/uL (1.4-4.0); Lymphocytes % 15.2 % (21.2-54.2); Mean Corpuscular HGB Conc 33.3 GM/DL (32-36); Mean Corpuscular Hemoglobin 28 PG (27-34); Mean Corpuscular Volume 82.8 FL (87-102); Mean Platelet Volume 11.9 FL (9.6-12.0); Monocytes # 0.6 10*3/uL (0.11-0.8); Monocytes % 6.8 % (1.7-12.7); NRBC # 0.04 10*3/uL; Neutrophils # 6.3 10*3/uL (1.4-7.4); Neutrophils % 75.7 % (38.7-73.9); Platelet Count 130 T/CUMM (130-400); Red Blood Count 5.87 MC/CUMM (3.8-5.5); Red Cell Distribution Width 18.8 % (9.3-17.3); White Blood Count 8.3 T/CUMM (4-12)
[2018-01-19 23:42] LABS: INR 1.3; PT Patient Result 13.7 SECS; Partial Thromboplastin Time 27.1 SECS (0-40)
[2018-01-19 23:51] LABS: Alanine Aminotransferase 41 U/L (16-61); Alkaline Phosphatase 142 U/L (45-117); Aspartate Amino Transferase 27 U/L (0-37); Blood Urea Nitrogen 56 MG/DL (7-18); Calcium 8.7 MG/DL (8.5-10.1); Glucose 124 MG/DL (74-106); Osmolality,Calculated 274.9 MOS/KG (273-304); Potassium 5.2 MMOL/L (3.5-5.1); Sodium 129 MMOL/L (136-145); Total Protein 7.5 G/DL (6.4-8.3)
[2018-01-20] MEDS ORDERED: MAGNESIUM SULF RIDER 4 GM in PREMIX 1 EACH IV PRN (00:49)
[2018-01-20] MEDS ORDERED: MAGNESIUM SULF RIDER 2 GM in PREMIX 1 EACH IV PRN (00:49)
[2018-01-20] MEDS ORDERED: SODIUM POLYSTYRENE SULFATE 15 GM/60 ML BOTTLE PO STA (00:49)
[2018-01-20] MEDS ORDERED: MORPHINE 4 MG/1 ML VIAL IV PRN (00:49)
[2018-01-20] MEDS ORDERED: ONDANSETRON 4 MG/2 ML VIAL IV PRN (00:49)
[2018-01-20] MEDS ORDERED: HEPARIN DRIP 25,000 UNITS/500 ML PREMIX IV SCH (01:00)
[2018-01-20] MEDS: ALBUTEROL/IPRATROPIUM 3 ML NEB RESP TX SCH ×4 (02:25→19:58)
[2018-01-20] MEDS: SODIUM CHLORIDE 0.9% 1,000 ML IV SCH ×2 (02:44→18:00)
[2018-01-20] MEDS: levETIRAcetam 500 MG TABLET PO SCH ×2 (09:00→20:36)
[2018-01-20] MEDS ORDERED: NON-FORMULARY MEDICATION (Budesonide/Formoterol 160-4.5 [Symbicort 160-4.5] 2 PUFF) INH SCH (09:00)
[2018-01-20] MEDS: PANTOPRAZOLE 40 MG VIAL IV SCH (14:47)
[2018-01-20] MEDS: ATORVASTATIN 20 MG TABLET PO SCH (20:36)
[2018-01-21] MEDS: ALBUTEROL/IPRATROPIUM 3 ML NEB RESP TX SCH ×4 (00:31→19:01)
[2018-01-21 04:54] LABS: Calcium 8.2 MG/DL (8.5-10.1); Osmolality,Calculated 277.7 MOS/KG (273-304); Potassium 4.4 MMOL/L (3.5-5.1)
[2018-01-21] MEDS: levETIRAcetam 500 MG TABLET PO SCH ×2 (09:22→20:41)
[2018-01-21] MEDS: PANTOPRAZOLE 40 MG VIAL IV SCH (09:23)
[2018-01-21] MEDS: SODIUM CHLORIDE 0.9% 1,000 ML IV SCH (12:26)
[2018-01-21] MEDS: MONTELUKAST 10 MG TABLET PO SCH ×2 (16:11→20:41)
[2018-01-21] MEDS: FUROSEMIDE 40 MG/4 ML VIAL IV SCH (16:11)
[2018-01-21] MEDS: ALLOPURINOL 100 MG TABLET PO SCH (16:11)
[2018-01-21] MEDS: BUDESONIDE/FORMOTEROL 160-4.5 INHALER 6 GM INH SCH ×2 (16:15→20:42)
[2018-01-21] MEDS: ATORVASTATIN 20 MG TABLET PO SCH (20:41)
[2018-01-22] MEDS: ALBUTEROL/IPRATROPIUM 3 ML NEB RESP TX SCH ×4 (00:22→19:56)
[2018-01-22 04:36] LABS: Osmolality,Calculated 278.5 MOS/KG (273-304)
[2018-01-22] MEDS: SODIUM CHLORIDE 0.9% 1,000 ML IV SCH (05:10)
[2018-01-22] MEDS: levETIRAcetam 500 MG TABLET PO SCH ×2 (08:45→21:33)
[2018-01-22] MEDS: MONTELUKAST 10 MG TABLET PO SCH ×2 (08:45→21:33)
[2018-01-22] MEDS: ALLOPURINOL 100 MG TABLET PO SCH (08:45)
[2018-01-22] MEDS: FUROSEMIDE 40 MG/4 ML VIAL IV SCH (08:45)
[2018-01-22] MEDS: PANTOPRAZOLE 40 MG VIAL IV SCH (08:48)
[2018-01-22] MEDS: BUDESONIDE/FORMOTEROL 160-4.5 INHALER 6 GM INH SCH ×2 (10:40→21:33)
[2018-01-22] MEDS: DOXYCYCLINE HYCLATE INJ 100 MG in SODIUM CHLORIDE 0.9% 100 ML IV SCH (17:35)
[2018-01-22] MEDS: ATORVASTATIN 20 MG TABLET PO SCH (21:33)
[2018-01-22] MEDS: MIRTAZAPINE 15 MG TABLET PO SCH (21:33)
[2018-01-23] MEDS: ALBUTEROL/IPRATROPIUM 3 ML NEB RESP TX SCH ×4 (00:32→19:52)
[2018-01-23] MEDS: SODIUM CHLORIDE 0.9% 1,000 ML IV SCH (03:30)
[2018-01-23 04:33] LABS: Calcium 8.1 MG/DL (8.5-10.1); Osmolality,Calculated 276.4 MOS/KG (273-304); Potassium 3.9 MMOL/L (3.5-5.1)
[2018-01-23 04:34] LABS: Calcium 8.1 MG/DL (8.5-10.1); Osmolality,Calculated 276.4 MOS/KG (273-304)
[2018-01-23] MEDS: DOXYCYCLINE HYCLATE INJ 100 MG in SODIUM CHLORIDE 0.9% 100 ML IV SCH ×2 (05:39→16:38)
[2018-01-23] MEDS: PANTOPRAZOLE 40 MG VIAL IV SCH (09:03)
[2018-01-23] MEDS: MONTELUKAST 10 MG TABLET PO SCH ×2 (09:03→20:09)
[2018-01-23] MEDS: BUDESONIDE/FORMOTEROL 160-4.5 INHALER 6 GM INH SCH ×2 (09:03→20:09)
[2018-01-23] MEDS: ALLOPURINOL 100 MG TABLET PO SCH (09:03)
[2018-01-23] MEDS: levETIRAcetam 500 MG TABLET PO SCH ×2 (09:03→20:09)
[2018-01-23] MEDS: ATORVASTATIN 20 MG TABLET PO SCH (20:09)
[2018-01-23] MEDS: MIRTAZAPINE 15 MG TABLET PO SCH (20:09)
[2018-01-23] MEDS: CARVEDILOL 6.25 MG TABLET PO SCH (20:09)
[2018-01-24] MEDS: ALBUTEROL/IPRATROPIUM 3 ML NEB RESP TX SCH ×4 (00:46→20:26)
[2018-01-24 04:08] LABS: Calcium 8.5 MG/DL (8.5-10.1); Osmolality,Calculated 273.5 MOS/KG (273-304); Potassium 4.4 MMOL/L (3.5-5.1)
[2018-01-24] MEDS: DOXYCYCLINE HYCLATE INJ 100 MG in SODIUM CHLORIDE 0.9% 100 ML IV SCH (05:43)
[2018-01-24] MEDS: CARVEDILOL 6.25 MG TABLET PO SCH ×2 (09:23→21:26)
[2018-01-24] MEDS: levETIRAcetam 500 MG TABLET PO SCH ×2 (09:23→21:26)
[2018-01-24] MEDS: MONTELUKAST 10 MG TABLET PO SCH ×2 (09:23→21:25)
[2018-01-24] MEDS: PANTOPRAZOLE 40 MG VIAL IV SCH (09:24)
[2018-01-24] MEDS: ALLOPURINOL 100 MG TABLET PO SCH (09:24)
[2018-01-24] MEDS: SODIUM CHLORIDE 1 GM TABLET PO SCH ×2 (09:30→21:25)
[2018-01-24] MEDS: BUDESONIDE/FORMOTEROL 160-4.5 INHALER 6 GM INH SCH ×2 (09:30→21:26)
[2018-01-24] MEDS: LEVOFLOXACIN INJ 500 MG in PREMIX 1 EACH IV SCH (14:12)
[2018-01-24] MEDS ORDERED: DOXYCYCLINE HYCLATE 100 MG CAPSULE PO SCH (21:00)
[2018-01-24] MEDS: ATORVASTATIN 20 MG TABLET PO SCH (21:26)
[2018-01-24] MEDS: MIRTAZAPINE 15 MG TABLET PO SCH (21:26)
[2018-01-25] MEDS: ALBUTEROL/IPRATROPIUM 3 ML NEB RESP TX SCH ×4 (00:40→19:24)
[2018-01-25 04:49] LABS: Basophils % 0.5 % (0.0-0.8); Eosinophils # 0.2 10*3/uL (0.0-0.87); Eosinophils % 2.7 % (0.00-10.9); Hematocrit 42.5 VOL% (42.0-52.0); Immature Granulocytes % 0.3 %; Immature Granulocytes Absolute 0.02 #; Lymphocytes # 1.1 10*3/uL (1.4-4.0); Lymphocytes % 17.4 % (21.2-54.2); Mean Corpuscular HGB Conc 32.9 GM/DL (32-36); Mean Corpuscular Hemoglobin 27 PG (27-34); Mean Platelet Volume 12.3 FL (9.6-12.0); Monocytes # 0.6 10*3/uL (0.11-0.8); Monocytes % 10.2 % (1.7-12.7); NRBC # 0.05 10*3/uL; Neutrophils # 4.3 10*3/uL (1.4-7.4); Neutrophils % 68.9 % (38.7-73.9); Platelet Count 119 T/CUMM (130-400); Red Blood Count 5.12 MC/CUMM (3.8-5.5); Red Cell Distribution Width 18.8 % (9.3-17.3); White Blood Count 6.3 T/CUMM (4-12)
[2018-01-25 05:17] LABS: Calcium 8.4 MG/DL (8.5-10.1); Osmolality,Calculated 276.5 MOS/KG (273-304); Potassium 4.4 MMOL/L (3.5-5.1)
[2018-01-25] MEDS: DOBUTamine 500 MG/250 ML PREMIX IV SCH (08:44)
[2018-01-25] MEDS: ALLOPURINOL 100 MG TABLET PO SCH (08:45)
[2018-01-25] MEDS: MONTELUKAST 10 MG TABLET PO SCH ×2 (08:45→21:34)
[2018-01-25] MEDS: BUDESONIDE/FORMOTEROL 160-4.5 INHALER 6 GM INH SCH ×2 (08:45→21:39)
[2018-01-25] MEDS: levETIRAcetam 500 MG TABLET PO SCH ×2 (08:45→21:34)
[2018-01-25] MEDS: PANTOPRAZOLE 40 MG TABLET PO SCH (08:45)
[2018-01-25] MEDS: SODIUM CHLORIDE 1 GM TABLET PO SCH ×2 (08:45→21:36)
[2018-01-25] MEDS: CARVEDILOL 6.25 MG TABLET PO SCH ×2 (08:45→21:34)
[2018-01-25] MEDS: LEVOFLOXACIN INJ 500 MG in PREMIX 1 EACH IV SCH (14:32)
[2018-01-25] MEDS: MIRTAZAPINE 15 MG TABLET PO SCH (21:34)
[2018-01-25] MEDS: ATORVASTATIN 20 MG TABLET PO SCH (21:34)
[2018-01-26] MEDS: DOBUTamine 500 MG/250 ML PREMIX IV SCH ×2 (00:13→15:44)
[2018-01-26] MEDS: ALBUTEROL/IPRATROPIUM 3 ML NEB RESP TX SCH ×4 (01:39→19:08)
[2018-01-26 05:54] LABS: Calcium 8.4 MG/DL (8.5-10.1); Osmolality,Calculated 274.7 MOS/KG (273-304); Potassium 4.7 MMOL/L (3.5-5.1)
[2018-01-26] MEDS: PANTOPRAZOLE 40 MG TABLET PO SCH (08:25)
[2018-01-26] MEDS: MONTELUKAST 10 MG TABLET PO SCH ×2 (08:25→21:02)
[2018-01-26] MEDS: ALLOPURINOL 100 MG TABLET PO SCH (08:25)
[2018-01-26] MEDS: SODIUM CHLORIDE 1 GM TABLET PO SCH ×2 (08:25→21:34)
[2018-01-26] MEDS: levETIRAcetam 500 MG TABLET PO SCH ×2 (08:26→21:02)
[2018-01-26] MEDS: CARVEDILOL 6.25 MG TABLET PO SCH ×2 (08:26→21:02)
[2018-01-26] MEDS: BUDESONIDE/FORMOTEROL 160-4.5 INHALER 6 GM INH SCH ×2 (08:27→21:34)
[2018-01-26] MEDS ORDERED: FUROSEMIDE 40 MG/4 ML VIAL IV ONE (10:41)
[2018-01-26] MEDS: LEVOFLOXACIN INJ 500 MG in PREMIX 1 EACH IV SCH (15:51)
[2018-01-26] MEDS: MIRTAZAPINE 15 MG TABLET PO SCH (21:02)
[2018-01-26] MEDS: ATORVASTATIN 20 MG TABLET PO SCH (21:02)
[2018-01-27] MEDS: ALBUTEROL/IPRATROPIUM 3 ML NEB RESP TX SCH ×4 (00:43→19:00)
[2018-01-27] MEDS: DOBUTamine 500 MG/250 ML PREMIX IV SCH ×2 (03:13→14:42)
[2018-01-27 05:56] LABS: Calcium 8.7 MG/DL (8.5-10.1); Osmolality,Calculated 270.9 MOS/KG (273-304); Potassium 4.8 MMOL/L (3.5-5.1)
[2018-01-27] MEDS: CARVEDILOL 6.25 MG TABLET PO SCH ×2 (09:27→20:57)
[2018-01-27] MEDS: PANTOPRAZOLE 40 MG TABLET PO SCH (09:27)
[2018-01-27] MEDS: ALLOPURINOL 100 MG TABLET PO SCH (09:27)
[2018-01-27] MEDS: MONTELUKAST 10 MG TABLET PO SCH ×2 (09:27→20:57)
[2018-01-27] MEDS: levETIRAcetam 500 MG TABLET PO SCH ×2 (09:27→20:57)
[2018-01-27] MEDS: BUDESONIDE/FORMOTEROL 160-4.5 INHALER 6 GM INH SCH ×2 (09:28→20:57)
[2018-01-27] MEDS: SODIUM CHLORIDE 1 GM TABLET PO SCH ×3 (09:30→20:57)
[2018-01-27] MEDS ORDERED: FUROSEMIDE 40 MG/4 ML VIAL IV ONE (12:58)
[2018-01-27] MEDS: LEVOFLOXACIN INJ 500 MG in PREMIX 1 EACH IV SCH (14:20)
[2018-01-27] MEDS ORDERED: SKIN HEALING OINT (AQUAPHOR) 50 GM TUBE TOP PRN (18:16)
[2018-01-27] MEDS: ATORVASTATIN 20 MG TABLET PO SCH (20:57)
[2018-01-27] MEDS: MIRTAZAPINE 15 MG TABLET PO SCH (20:57)
[2018-01-28] MEDS: ALBUTEROL/IPRATROPIUM 3 ML NEB RESP TX SCH ×4 (00:39→19:24)
[2018-01-28] MEDS: DOBUTamine 500 MG/250 ML PREMIX IV SCH ×3 (01:30→11:58)
[2018-01-28 03:49] LABS: Calcium 8.3 MG/DL (8.5-10.1); Osmolality,Calculated 266.9 MOS/KG (273-304); Potassium 4.4 MMOL/L (3.5-5.1)
[2018-01-28] MEDS: SKIN HEALING OINT (AQUAPHOR) 50 GM TUBE TOP SCH (09:33)
[2018-01-28] MEDS: MONTELUKAST 10 MG TABLET PO SCH ×2 (09:33→20:52)
[2018-01-28] MEDS: PANTOPRAZOLE 40 MG TABLET PO SCH (09:33)
[2018-01-28] MEDS: CARVEDILOL 3.125 MG TABLET PO SCH ×2 (09:34→20:53)
[2018-01-28] MEDS: levETIRAcetam 500 MG TABLET PO SCH ×2 (09:34→20:53)
[2018-01-28] MEDS: ALLOPURINOL 100 MG TABLET PO SCH (09:34)
[2018-01-28] MEDS: BUDESONIDE/FORMOTEROL 160-4.5 INHALER 6 GM INH SCH ×2 (09:35→20:55)
[2018-01-28] MEDS: CARVEDILOL 6.25 MG TABLET PO SCH (11:01)
[2018-01-28] MEDS: SODIUM CHLORIDE 1 GM TABLET PO SCH ×4 (11:01→20:53)
[2018-01-28] MEDS: LEVOFLOXACIN INJ 500 MG in PREMIX 1 EACH IV SCH (13:16)
[2018-01-28] MEDS: FUROSEMIDE 80 MG TABLET PO SCH (16:59)
[2018-01-28] MEDS: MIRTAZAPINE 15 MG TABLET PO SCH (20:52)
[2018-01-28] MEDS: ATORVASTATIN 20 MG TABLET PO SCH (20:53)
[2018-01-29] MEDS: ALBUTEROL/IPRATROPIUM 3 ML NEB RESP TX SCH ×4 (00:25→20:06)
[2018-01-29 06:03] LABS: Basophils % 0.2 % (0.0-0.8); Eosinophils % 0.2 % (0.00-10.9); Hematocrit 44.1 VOL% (42.0-52.0); Immature Granulocytes % 0.8 %; Immature Granulocytes Absolute 0.08 #; Lymphocytes # 0.6 10*3/uL (1.4-4.0); Lymphocytes % 5.9 % (21.2-54.2); Mean Corpuscular Hemoglobin 28 PG (27-34); Mean Corpuscular Volume 81.5 FL (87-102); Mean Platelet Volume 11.1 FL (9.6-12.0); Monocytes # 0.9 10*3/uL (0.11-0.8); Monocytes % 8.9 % (1.7-12.7); NRBC # 0.05 10*3/uL; Neutrophils # 8.4 10*3/uL (1.4-7.4); Platelet Count 135 T/CUMM (130-400); Red Blood Count 5.41 MC/CUMM (3.8-5.5); Red Cell Distribution Width 18.5 % (9.3-17.3)
[2018-01-29 06:26] LABS: Osmolality,Calculated 266.9 MOS/KG (273-304); Potassium 4.4 MMOL/L (3.5-5.1)
[2018-01-29] MEDS: levETIRAcetam 500 MG TABLET PO SCH ×2 (09:34→21:10)
[2018-01-29] MEDS: SKIN HEALING OINT (AQUAPHOR) 50 GM TUBE TOP SCH (09:34)
[2018-01-29] MEDS: CARVEDILOL 3.125 MG TABLET PO SCH ×3 (09:34→21:10)
[2018-01-29] MEDS: SODIUM CHLORIDE 1 GM TABLET PO SCH ×4 (09:34→21:10)
[2018-01-29] MEDS: MONTELUKAST 10 MG TABLET PO SCH ×2 (09:34→21:10)
[2018-01-29] MEDS: ALLOPURINOL 100 MG TABLET PO SCH (09:34)
[2018-01-29] MEDS: FUROSEMIDE 80 MG TABLET PO SCH (09:34)
[2018-01-29] MEDS: PANTOPRAZOLE 40 MG TABLET PO SCH (09:34)
[2018-01-29] MEDS: BUDESONIDE/FORMOTEROL 160-4.5 INHALER 6 GM INH SCH ×2 (09:35→21:15)
[2018-01-29] MEDS: LEVOFLOXACIN 500 MG TABLET PO SCH (12:04)
[2018-01-29] MEDS: MIRTAZAPINE 15 MG TABLET PO SCH (21:10)
[2018-01-29] MEDS: ATORVASTATIN 20 MG TABLET PO SCH (21:10)
[2018-01-30] MEDS: ALBUTEROL/IPRATROPIUM 3 ML NEB RESP TX SCH ×4 (01:16→20:27)
[2018-01-30 05:34] LABS: Basophils % 0.1 % (0.0-0.8); Eosinophils % 0.5 % (0.00-10.9); Hematocrit 41.2 VOL% (42.0-52.0); Immature Granulocytes % 0.7 %; Immature Granulocytes Absolute 0.06 #; Lymphocytes # 0.8 10*3/uL (1.4-4.0); Lymphocytes % 9.6 % (21.2-54.2); Mean Corpuscular Hemoglobin 27 PG (27-34); Mean Platelet Volume 11.3 FL (9.6-12.0); Monocytes # 0.8 10*3/uL (0.11-0.8); Monocytes % 10.1 % (1.7-12.7); NRBC # 0.06 10*3/uL; Neutrophils # 6.6 10*3/uL (1.4-7.4); Platelet Count 163 T/CUMM (130-400); Red Blood Count 5.15 MC/CUMM (3.8-5.5); Red Cell Distribution Width 17.9 % (9.3-17.3); White Blood Count 8.3 T/CUMM (4-12)
[2018-01-30 05:47] LABS: Calcium 8.4 MG/DL (8.5-10.1); Osmolality,Calculated 272.7 MOS/KG (273-304); Potassium 4.6 MMOL/L (3.5-5.1)
[2018-01-30] MEDS: PANTOPRAZOLE 40 MG TABLET PO SCH (09:28)
[2018-01-30] MEDS: SODIUM CHLORIDE 1 GM TABLET PO SCH ×4 (09:28→21:49)
[2018-01-30] MEDS: MONTELUKAST 10 MG TABLET PO SCH ×2 (09:28→21:50)
[2018-01-30] MEDS: levETIRAcetam 500 MG TABLET PO SCH ×2 (09:28→21:50)
[2018-01-30] MEDS: SKIN HEALING OINT (AQUAPHOR) 50 GM TUBE TOP SCH (09:28)
[2018-01-30] MEDS: ALLOPURINOL 100 MG TABLET PO SCH (09:28)
[2018-01-30] MEDS: LEVOFLOXACIN 500 MG TABLET PO SCH (09:29)
[2018-01-30] MEDS: CARVEDILOL 3.125 MG TABLET PO SCH ×2 (09:30→21:50)
[2018-01-30] MEDS: BUDESONIDE/FORMOTEROL 160-4.5 INHALER 6 GM INH SCH ×2 (09:31→21:50)
[2018-01-30] MEDS: ATORVASTATIN 20 MG TABLET PO SCH (21:50)
[2018-01-30] MEDS: MIRTAZAPINE 15 MG TABLET PO SCH (21:50)
[2018-01-31] MEDS: ALBUTEROL/IPRATROPIUM 3 ML NEB RESP TX SCH ×4 (00:36→19:49)
[2018-01-31 05:44] LABS: Basophils % 0.1 % (0.0-0.8); Eosinophils % 0.4 % (0.00-10.9); Hematocrit 41.1 VOL% (42.0-52.0); Hemoglobin 14.4 GM/DL (14.0-18.0); Immature Granulocytes % 0.9 %; Immature Granulocytes Absolute 0.07 #; Lymphocytes # 0.9 10*3/uL (1.4-4.0); Lymphocytes % 10.8 % (21.2-54.2); Mean Corpuscular Hemoglobin 28 PG (27-34); Mean Corpuscular Volume 80.1 FL (87-102); Mean Platelet Volume 11.2 FL (9.6-12.0); Monocytes # 0.8 10*3/uL (0.11-0.8); Monocytes % 10.3 % (1.7-12.7); NRBC # 0.08 10*3/uL; Neutrophils # 6.2 10*3/uL (1.4-7.4); Neutrophils % 77.5 % (38.7-73.9); Platelet Count 176 T/CUMM (130-400); Red Blood Count 5.13 MC/CUMM (3.8-5.5); Red Cell Distribution Width 17.9 % (9.3-17.3); White Blood Count 8.1 T/CUMM (4-12)
[2018-01-31 05:58] LABS: Calcium 8.6 MG/DL (8.5-10.1); Osmolality,Calculated 277.7 MOS/KG (273-304); Potassium 4.9 MMOL/L (3.5-5.1)
[2018-01-31 06:08] LABS: Burr Cells Slight; Hypochromasia Slight; Ovalocytes Slight; Platelet Estimate Adequate
[2018-01-31] MEDS: BUDESONIDE/FORMOTEROL 160-4.5 INHALER 6 GM INH SCH ×2 (09:15→21:21)
[2018-01-31] MEDS: levETIRAcetam 500 MG TABLET PO SCH ×2 (09:16→21:34)
[2018-01-31] MEDS: LEVOFLOXACIN 500 MG TABLET PO SCH (09:16)
[2018-01-31] MEDS: MONTELUKAST 10 MG TABLET PO SCH ×2 (09:16→21:21)
[2018-01-31] MEDS: PANTOPRAZOLE 40 MG TABLET PO SCH (09:16)
[2018-01-31] MEDS: CARVEDILOL 3.125 MG TABLET PO SCH ×2 (09:16→21:21)
[2018-01-31] MEDS: ALLOPURINOL 100 MG TABLET PO SCH (09:16)
[2018-01-31] MEDS: SODIUM CHLORIDE 1 GM TABLET PO SCH ×4 (09:16→21:24)
[2018-01-31] MEDS: SKIN HEALING OINT (AQUAPHOR) 50 GM TUBE TOP SCH (09:17)
[2018-01-31] MEDS: MIRTAZAPINE 15 MG TABLET PO SCH (21:21)
[2018-01-31] MEDS: ATORVASTATIN 20 MG TABLET PO SCH (21:21)
[2018-02-01] MEDS: ALBUTEROL/IPRATROPIUM 3 ML NEB RESP TX SCH ×2 (01:09→07:09)
[2018-02-01 08:18] VITALS: BP 94/65
[2018-02-01] MEDS: LEVOFLOXACIN 500 MG TABLET PO SCH (08:56)
[2018-02-01] MEDS: ALLOPURINOL 100 MG TABLET PO SCH (08:56)
[2018-02-01] MEDS: levETIRAcetam 500 MG TABLET PO SCH (08:56)
[2018-02-01] MEDS: SKIN HEALING OINT (AQUAPHOR) 50 GM TUBE TOP SCH (08:57)
[2018-02-01] MEDS: BUDESONIDE/FORMOTEROL 160-4.5 INHALER 6 GM INH SCH (08:57)
[2018-02-01] MEDS: FUROSEMIDE 80 MG TABLET PO SCH (08:57)
[2018-02-01] MEDS: MONTELUKAST 10 MG TABLET PO SCH (08:57)
[2018-02-01] MEDS: CARVEDILOL 3.125 MG TABLET PO SCH (08:57)
[2018-02-01] MEDS: PANTOPRAZOLE 40 MG TABLET PO SCH (08:57)
[2018-02-01] MEDS: SODIUM CHLORIDE 1 GM TABLET PO SCH (08:57)
== END 2018-02-01 12:49 | disposition hospice, home (50) | DRG 302 ==
LOC: EDUNIT# → EDBD → N.ED 19:40 → N.EDINP 01-20 00:49 → SUATTDRO 01-20 00:49 → N.TELEN 01-20 01:36
PROVIDERS: ADMIT Internal Medicine; ATTEND Hospitalist